=== PATIENT | female | born 1945 | race Caucasian/White ===

== ENCOUNTER 2016-09-24 22:08 | Inpatient (IN) | payer MEDICARE, OTHER ==
[~2016-09-24] VITALS: Ht 175.3 cm; Wt 67.7 kg
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
--- NOTE | 2016-09-24 22:44 | NUR ---
KENDRA HICKS APRN AT BEDSIDE.
--- NOTE | 2016-09-24 23:01 | NUR ---
REPORT REPORT RECEIVED AND CARE ASSUMED AT THIS TIME
--- NOTE | 2016-09-24 23:10 | NUR ---
VOID PT ASSISTED TO BEDPAN, VOIDED 400ML STRAW COLORED, CLEAR URINE. Addendum: 09/24/16 at 2315 by JAYDON CORRECT TIME TO 3
[2016-09-24] MEDS ORDERED: FENTANYL 100mcg/2ml INJECTION NAS ONE (23:15)
[2016-09-24] MEDS ORDERED: ONDANSETRON ODT 4 MG TAB PO ONE (23:15)
--- NOTE | 2016-09-24 23:50 | NUR ---
ELIMINATION PT VOIDED ON BEDPAN
--- NOTE | 2016-09-24 23:52 | NUR ---
RADIOLOGY PT TO RADIOLOGY PER CART
[2016-09-25] VITALS (30 sets, daily range): BP systolic 122–150; BP diastolic 57–80; PULSE 76–99; RESP 14–26; TEMP 96.3–99.7; O2SAT 88–100; Ht 175.3 cm; Wt 67.7 kg
--- NOTE | 2016-09-25 00:10 | NUR ---
RADIOLOGY PT FROM RADIOLOGY PER CART
[2016-09-25] MEDS ORDERED: HYDROMORPHONE 2mg/ml INJECTION IV ONE (00:30)
--- NOTE | 2016-09-25 00:35 | NUR ---
RADIOLOGY PT BACK TO RADIOLOGY
--- NOTE | 2016-09-25 00:45 | NUR ---
RADIOLOGY PT FROM CT PER CART
--- NOTE | 2016-09-25 01:45 | NUR ---
REPORT REPORT TO KIRA GONZALES
[2016-09-25] MEDS ORDERED: LEVO50TA4 PO (01:51)
[2016-09-25] MEDS ORDERED: ONDANSETRON 4mg/2ml INJECTION IV PRN ×2 (02:00→11:30)
[2016-09-25 02:02] LABS: BLOOD, URINE NEGATIVE (NEGATIVE); COLOR,URINE YELLOW (YELLOW); LEUKOCYTE ESTERASE ,URINE NEGATIVE (NEGATIVE); NITRITE,URINE NEGATIVE (NEGATIVE); UROBILINOGEN,URINE 0.2 EU/DL (NORMAL)
[2016-09-25 02:03] LABS: HCT - HEMATOCRIT 41.3 % (36-46); HGB - HEMOGLOBIN 13.5 GM/DL (12-16); MEAN CORPUSCULAR HGB 30.3 UUG (26-34); MEAN CORPUSCULAR HGB CONC(MCHC 32.7 GM/DL (31-37); MEAN CORPUSCULAR VOLUME 92.6 UM3 (80-100); MEAN PLATELET VOLUME 10.3 UM3 (9.4-12.4); RED BLOOD COUNT 4.46 M/MM3 (4.00-5.20)
[2016-09-25 02:10] LABS: ANION GAP 12 MEQ/L (5-15); BUN/CREATININE RATIO 31 RATIO (6-26); CALCIUM 9.4 MG/DL (8.4-10.2); CHLORIDE 104 MEQ/L (98-107); CO2 - CARBON DIOXIDE 29 MEQ/L (22-30); CREATININE 0.7 MG/DL (0.7-1.2); GLOMERULAR FILTRATION RATE 83; GLUCOSE 123 MG/DL (65-110); MAGNESIUM 2.3 MG/DL (1.6-2.3); SODIUM 145 MEQ/L (134-144)
[2016-09-25 02:12] LABS: BAND NEUTROPHILS # 0.6 T/MM3; EOSINOPHILS # (MANUAL) 0.1 T/MM3 (0-0.5); LYMPHOCYTES # (MANUAL) 1.1 T/MM3 (1-4.8); MONOCYTES # (MANUAL) 0.5 T/MM3 (0-0.8); NEUTROPHILS #(MANUAL)-ABSOLUTE 7.7 T/MM3 (1.8-7.7); TOTAL CELLS COUNTED 100 %
[2016-09-25 02:21] LABS: PHOSPHORUS 3.1 MG/DL (2.5-4.5)
--- NOTE | 2016-09-25 02:30 | NUR ---
STATUS PT RESTING AT THIS TIME. PT REPORTS MINIMAL PAIN UNLESS SHE TIRES TO MOVE HER LEG
[2016-09-25 02:41] LABS: THYROID STIM HORMONE-TSH 1.72 MIU/L (0.47-4.68)
--- NOTE | 2016-09-25 02:52 | NUR ---
TRANSFER PT LEFT DEPARTMENT PER CART WITH STAFF AND
[2016-09-25] MEDS: HYDROMORPHONE 2mg/ml INJECTION IV PRN ×6 (03:09→12:05)
[2016-09-25] MEDS: NORMAL SALINE 1,000 ML IV SCH ×2 (03:13→12:18)
[2016-09-25] MEDS ORDERED: LACT1CAP73 PO (03:16)
--- NOTE | 2016-09-25 03:20 | NUR ---
Admission: Pt arrived at 0250 via cart from ED with nurse. Pt is a&o. Pt present with Pt. Pt is on room air. Pt transferred to bed via slide board and had increase in pain of course. Pt holds breath when experiencing increase in pain and O2 sat's drop. Pt educated to breath normal and take deep breaths with increase in pain. Pain medication administered as charted. Pt is pleasant and cooperative. Mota catheter inserted as charted per 's orders. Pt oriented to room, call light, etc. Pt resting in bed with eyes closed. Resp visible and unlabored.
--- NOTE | 2016-09-25 04:05 | HPPDOC ---
GENOVEVA MCCORMICK MD 09/25/16 0357: HPI - Adult Date DATE: 09/25/16 TIME: 04:54 General Chief Complaint: left hip pain History of Present Illness This is a 71-year-old female tripped over a [employer] tractor one of her grandchildren. The patient landed on her left hip. Had immediate pain and unable to bear weight. The patient is brought to the emergency department or a plain x-ray suggests the possibility of a fracture. A CT of the hip was undertaken and demonstrated an impacted fracture of the left. The patient otherwise healthy except for hypothyroidism. The patient is in excellent health. The patient is to be admitted for surgical repair. The ER provider discussed with Dr. Reeves and agrees to evaluate the patient this morning Past Medical History Past Medical History breast cancer hypothyroid Surgical History Patient's Surgical History: left masectomy with lymph node removal BELINDA T and A jaw surgery for TMJ Current Medications Home Meds Reported Medications Lactobacillus Combination No.4 (Probiotic) 1 Each Capsule, 3 CAP PO BID 09/25/16 Levothyroxine Sodium (Synthroid) 50 Mcg Tablet, 1 TAB PO ACB, TAB BEST IF TAKEN BEFORE BREAKFAST 09/25/16 Allergies: Coded Allergies: iodine (Verified Allergy, Unknown, 09/25/16) Family History Family History: non contributory Social History Smoking Status: Never smoker Substance Use Type: does not use Alcohol Intake: none Marital Status: Sexuality: male partner Household Members: significant other Current Occupational Status: employed Advance Directives: No DPOA for Healthcare Only Review of Systems All Other Systems All Other Systems: Reviewed (remainder of 10-point ROS Neg.) Comments The patient denies headache, denies change in vision, denies any difficulty hearing, denies any sore throat or difficulty swallowing, no fever chills or sweats, no neck pain, no chest pain, no PND, no orthopnea, no cough, the patient denies any nausea vomiting, no abdominal pain, no change in bowel movements, no urinary symptoms, no focal neurological complaints, the patient has pain to the left hip, pain is worse with movement or activity, the patient is very active and and aggressively does chores inside and outside the house without chest pain or shortness of breath. Her exercise tolerance has not changed recently. A 10 point review of systems is otherwise negative except for outlined above Physical Exam General General Nourishment: well nourished, well developed, apparent age, adult General Body Habitus: well groomed Vital Signs Vital Signs Date Time Temp Pulse Resp B/P Pulse Ox O2 Delivery O2 Flow Rate FiO2 09/25/16 03:09 18 09/25/16 03:04 99.7 98 150/71 88 Room Air 09/25/16 02:52 2.00 Height (Feet): 5 Height (Inches): 9.00 Telemetry Rhythm: Sinus Rhythm Eyes Brief: FOUND: EOMI, PERRL Neck Brief: FOUND: midline, NOT FOUND: JVD, nuchal rigidity, other, spasm, tenderness, tracheal deviation Respiratory Brief: FOUND: clear all quiñones, equal bilaterally, NOT FOUND: other , rales, spasm, symmetrical, tenderness, wheezes Cardiovascular (brief) Cardiac Brief: FOUND: regular rate, regular rhythm, NOT FOUND: click, gallop, murmur, other, pedal edema, peripheral edema, rub Capillary Refill: <2 sec Abdomen (brief) Abdominal Brief: FOUND: BS normo active x4, soft, NOT FOUND: distended, other, tender Musculoskeletal (brief) Musculoskeletal Brief: FOUND: spasm, tenderness Comments left hip Integumentary (brief) Integumentary Brief: FOUND: pink, warm Neurologic (brief) Neurological Brief: FOUND: cranial 2-12 intact Comments no focal deficit Neurologic RN Documented GCS Eye Opening: (4)Spontaneous Verbal: (5)Oriented Motor: (6)Obeys Commands Total: Psychiatric (brief) FOUND: alert, normal affect, oriented Laboratory Laboratory Tests Test 09/25/16 00:00 09/25/16 00:34 Urine Collection Type Cleancatch-midstream Urine Color Yellow Urine Turbidity Clear Urine pH 5.5 Urine Specific [place] <=1.005 Urine Protein Negative Urine Glucose (UA) Negative Urine Ketones Negative Urine Blood Negative Urine Nitrite Negative Urine Bilirubin Negative Urine Urobilinogen 0.2EU/DL Urine Leukocyte Esterase Negative Urinalysis Comment Microscopic not ind. White Blood Count 10.0T/MM3 Red Blood Count 4.46M/MM3 Hemoglobin 13.5GM/DL Hematocrit 41.3% Mean Corpuscular Volume 92.6UM3 Mean Corpuscular Hemoglobin 30.3UUG Mean Corpuscular Hemoglobin Concent 32.7GM/DL RDW Standard Deviation 45.1FL Platelet Count 247T/MM3 Mean Platelet Volume 10.3UM3 Immature Granulocyte % (Auto) % Neutrophils (%) (Auto) % Lymphocytes (%) (Auto) % Monocytes (%) (Auto) % Eosinophils (%) (Auto) % Basophils (%) (Auto) % Absolute Immature Granulocyte (auto T/MM3 Absolute Neutrophils (auto) T/MM3 Absolute Lymphocytes (auto) T/MM3 Absolute Monocytes (auto) T/MM3 Absolute Eosinophils (auto) T/MM3 Absolute Basophils (auto) T/MM3 Neutrophils % (Manual) 77.0% Band Neutrophils % 6.0% Lymphocytes % (Manual) 11.0% Monocytes % (Manual) 5.0% Eosinophils % (Manual) 1.0% Absolute Neutrophils (Manual) 7.7T/MM3 Band Neutrophils # 0.6T/MM3 Lymphocytes # (Manual) 1.1T/MM3 Monocytes # (Manual) 0.5T/MM3 Eosinophils # (Manual) 0.1T/MM3 Red Cell Morphology Comment Normal Turbidity < 20 Sodium Level 145MEQ/L Potassium Level 4.0MEQ/L Chloride Level 104MEQ/L Carbon Dioxide Level 29MEQ/L Anion Gap 12MEQ/L Blood Urea Nitrogen 22.0MG/DL Creatinine 0.7MG/DL Glomerular Filtration Rate Calc 83 BUN/Creatinine Ratio 31RATIO Glucose Level 123MG/DL Calculated Osmolality 283MOSM/KG Calcium Level 9.4MG/DL Phosphorus Level 3.1MG/DL Magnesium Level 2.3MG/DL Icterus Index < 2 Thyroid Stimulating Hormone (TSH) 1.72MIU/L Chemistry Specimen Hemolysis 18 EKG consider incomplete RBBB. sinus. non ischemic Radiology CT left hp demonstrates impacted surgical neck fx of femur pCXR looks reasuring no acute process Assessment & Plan Assessment 1. Surgical neck fracture of left femur acute present on admission: Nothing by mouth, orthopedic surgery consult as are deep in place, anticipate repair in the morning, this patient is medically cleared for surgical repair. The patient s meds are at least well. A perfect example of excellent health. 2. Hypothyroidism chronic present on admission: Continue supportive discharge 3. Remote history of breast carcinoma: To be aware of 4. DVT prophylaxis: SCD DVT Prophylaxis: SCD'S Code Status Full Code Hospital Course Summary Disclaimer The hospital course summary below is not to be considered part of the above Progress Note. TERRI MARQUEZ MD 09/25/16 1029: Past Medical History Current Medications Home Meds Reported Medications Lactobacillus Combination No.4 (Probiotic) 1 Each Capsule, 3 CAP PO BID 09/25/16 Levothyroxine Sodium (Synthroid) 50 Mcg Tablet, 1 TAB PO ACB, TAB BEST IF TAKEN BEFORE BREAKFAST 09/25/16 Allergies: Coded Allergies: iodine (Verified Allergy, Unknown, 09/25/16) Assessment & Plan Assessment Dr. Mccormick's note reviewed. Mrs. Russo interviewed and examined; multiple family members present. CC: Left hip pain/fracture HPI: Mrs. Russo tripped over a toy tractor taking recycling out yesterday evening. She landed on her left hip and denied head injury or loss of consciousness. She was able to get up independently and attempted to hop back to the house but was unable to bear weight on the left and left hip pain inhibited her ability to return to the house. Her assisted her return. Her daughter who is a nurse arrived shortly thereafter and the patient was subsequently evaluated in the emergency room where x-rays demonstrated an impacted left femoral neck fracture. She's had no nausea or vomiting and pain is being controlled with Dilaudid overnight. She is tentatively scheduled to go to the operating room later this morning. She was seen by Dr. Reeves earlier today. PH/SH/FH: agree with that recorded above and history of osteoporosis and prior hemithyroidectomy for benign nodule or cyst. FH positive for mother dying of pancreatic cancer, father of motor vehicle accident, and several siblings with cancer including lymphoma and neuroendocrine tumor. is the patient's alternate decision maker and she is full code. ROS: 10 point review notable only for variable bowel function and occasional tingling in her fingers which she attributes to position she is lying in. Otherwise entirely negative. EXAM: General-98.5, 127/96 NAD, alert, fluent speech HEENT-PERRL, EOMI without nystagmus, conjugate gaze, facial structures symmetric , oropharynx clear, neck supple and without adenopathy Lungs-respirations nonlabored, good airflow, breath sounds clear anteriorly/ laterally Cardiac-regular rhythm, S1-S2 Abd-soft, nontender, without palpable mass, bowel sounds present Ext-without edema Skin-small abrasion left forearm but otherwise without rash or evidence of injury Musculoskeletal-left leg shortened and externally rotated compared to the right Neuro-sensation intact bilateral lower extremities, able to plantarflex feet symmetrically. Upper extremity power normal, no drift, turner off 5/5. Sensation intact to light touch 4 extremities, EOMI, no tremor present. Normal motor tone Psych-calm, cooperative, pleasant A/P: Left femoral neck fracture Osteoporosis Hypothyroidism History of breast cancer Borderline hypernatremia x-rays reviewed by myself, chest x-ray unremarkable, EKG unremarkable. Preoperative labs stable with normal hemoglobin. Medically cleared to proceed with surgery as planned. Plan/Intensity of Service X-rays reviewed by myself, EKG reviewed by myself, discussed with anesthesia and multiple family members. Laboratory data reviewed. High-risk medications/IV narcotics-in use GENOVEVA MCCORMICK MD Sep 25, 2016 03:57 TERRI MARQUEZ MD Sep 25, 2016 10:29
--- NOTE | 2016-09-25 06:08 | NUR ---
End of Shift: Pt put on 1L of O2 due to O2 sat's from 86-89%. Pt came up to 92% very quickly after the 1L of O2 NC on. Pt is pleasant and cooperative. Pt given another dose of Dilaudid IV PRN as charted within the last hour. Pt resting quietly in bed. Good urinary output via wilson catheter. Pt has been NPO since arrival. IV continue to infuse. Pt has rested well since admission questions completed. Pt does get drowsy after pain meds but wakes up easily to name. Will continue to monitor.
--- NOTE | 2016-09-25 08:12 | CONSPD ---
Consultation Info Date DATE: 09/25/16 TIME: 07:57 Attending Physician Minh Hutson MD Reason for Consultation: Left Femoral Neck Fx Impression/Recommendation Impression/Recommendation: (1) Impacted fracture of left hip Status: Acute Qualifiers: Encounter type: initial encounter Fracture type: closed Qualified Codes: S72.092A - Other fracture of head and neck of left femur, initial encounter for closed fracture Recommendation: Discussed findings with patient. Recommend percutaneous screw fixation of the left hip. Discussed the risks, benefits, alternatives, and potential complications including but not limited to risk of fixation failure requiring additional surgery, infection, bleeding, neurovascular injury, risk of anesthesia and others. Will plan for surgery this morning. Consent. Npo. Ortho HPI HPI Elements Location: FOUND hip (left) Injury: Yes (fall) Pain: FOUND throbbing, FOUND ache, FOUND pressure Onset: Sudden Radiating: No Duration: FOUND 6-12 hours Previous Surgery: No Previous Injury: No Aggrevated by: FOUND standing, FOUND squatting, FOUND prolonged sitting, FOUND all activity, FOUND getting out of a chair Associated Symptoms: FOUND weakness, FOUND sensation of giving way, NOT FOUND numbness Treatments Tried: FOUND rest, FOUND pain medications X-ray Findings: FOUND sub-capital fracture Recommendation: FOUND cannulated screw fixation Review of Systems Constitutional: DENIES: chills, dizziness, fever, weakness Cardiovascular DENIES: chest pain, dyspnea on exertion Vascular: DENIES: pedal edema Pulmonary Respiratory: DENIES: cough, dyspnea GI Upper Abdomen: DENIES: nausea, vomiting Lower Abdomen: DENIES: constipation, diarrhea Musculoskeletal General: joint pain, tenderness, weakness Integumentary Skin: DENIES: lesion Neurological General: DENIES: numbness, seizures, syncope Psychiatric Psychiatric: DENIES: anxiety, depression All Other Systems Reviewed Past Medical History Adult Problem List Updates breast cancer hypothyroid Surgical History Patient's Surgical History: left masectomy with lymph node removal BELINDA T and A jaw surgery for TMJ Current Medications Lactobacillus Combination No.4 (Probiotic) 1 Each Capsule, 3 CAP PO BID, ( Reported) Last Taken: Unknown Dose on 09/24/16 0800 Levothyroxine Sodium (Synthroid) 50 Mcg Tablet, 1 TAB PO ACB, (Reported) BEST IF TAKEN BEFORE BREAKFAST Last Taken: 50 MCG on 09/24/16 0700 Allergies Allergies: Coded Allergies: iodine (Verified Allergy, Unknown, 09/25/16) Family History Family History: non contributory Vaccines No UNKNOWN Social History Smoking Status: Never smoker Substance Use Type: does not use Alcohol Intake: none Marital Status: Sexuality: male partner Household Members: significant other Current Occupational Status: employed Advance Directives: No DPOA for Healthcare Only Physical Exam General General: well nourished, well developed, no acute distress Respiratory FOUND clear all quiñones, FOUND non-labored Cardiovascular FOUND regular rate, FOUND regular rhythm Capillary Refill: <2 sec Abdomen Abdominal: FOUND soft, NOT FOUND distended, NOT FOUND tender Musculoskeletal Musculoskeletal : Side: Left Hip: FOUND painful PROM, FOUND tender over trochanter Musculoskeletal Brief: FOUND: loss of motion, spasm, tenderness, Not FOUND: deformity Comments Pain with log roll to left groin. Integumentary FOUND dry, FOUND pink, FOUND warm Laboratory Laboratory Tests Test 09/25/16 00:00 09/25/16 00:34 Urine Collection Type Cleancatch-midstream Urine Color Yellow Urine Turbidity Clear Urine pH 5.5 Urine Specific [place] <=1.005 Urine Protein Negative Urine Glucose (UA) Negative Urine Ketones Negative Urine Blood Negative Urine Nitrite Negative Urine Bilirubin Negative Urine Urobilinogen 0.2EU/DL Urine Leukocyte Esterase Negative Urinalysis Comment Microscopic not ind. White Blood Count 10.0T/MM3 Red Blood Count 4.46M/MM3 Hemoglobin 13.5GM/DL Hematocrit 41.3% Mean Corpuscular Volume 92.6UM3 Mean Corpuscular Hemoglobin 30.3UUG Mean Corpuscular Hemoglobin Concent 32.7GM/DL RDW Standard Deviation 45.1FL Platelet Count 247T/MM3 Mean Platelet Volume 10.3UM3 Immature Granulocyte % (Auto) % Neutrophils (%) (Auto) % Lymphocytes (%) (Auto) % Monocytes (%) (Auto) % Eosinophils (%) (Auto) % Basophils (%) (Auto) % Absolute Immature Granulocyte (auto T/MM3 Absolute Neutrophils (auto) T/MM3 Absolute Lymphocytes (auto) T/MM3 Absolute Monocytes (auto) T/MM3 Absolute Eosinophils (auto) T/MM3 Absolute Basophils (auto) T/MM3 Neutrophils % (Manual) 77.0% Band Neutrophils % 6.0% Lymphocytes % (Manual) 11.0% Monocytes % (Manual) 5.0% Eosinophils % (Manual) 1.0% Absolute Neutrophils (Manual) 7.7T/MM3 Band Neutrophils # 0.6T/MM3 Lymphocytes # (Manual) 1.1T/MM3 Monocytes # (Manual) 0.5T/MM3 Eosinophils # (Manual) 0.1T/MM3 Red Cell Morphology Comment Normal Turbidity < 20 Sodium Level 145MEQ/L Potassium Level 4.0MEQ/L Chloride Level 104MEQ/L Carbon Dioxide Level 29MEQ/L Anion Gap 12MEQ/L Blood Urea Nitrogen 22.0MG/DL Creatinine 0.7MG/DL Glomerular Filtration Rate Calc 83 BUN/Creatinine Ratio 31RATIO Glucose Level 123MG/DL Calculated Osmolality 283MOSM/KG Calcium Level 9.4MG/DL Phosphorus Level 3.1MG/DL Magnesium Level 2.3MG/DL Icterus Index < 2 Thyroid Stimulating Hormone (TSH) 1.72MIU/L Chemistry Specimen Hemolysis 18 Radiology Radiology Valgus impacted left sub-capital left femoral neck fx MINH HUTSON MD Sep 25, 2016 08:01
[2016-09-25] MEDS ORDERED: CEFAZOLIN 2 GM VIAL IV ONE (08:15)
--- NOTE | 2016-09-25 08:49 | DI ---
Indication: ITS.REASON: Fall with left hip pain PROCEDURE: CT LOWER EXTREMITY LT W/O CONT: Encounter: Initial Comparison: None Technique: Axial noncontrast CT imaging of the pelvis and hips was performed with coronal and sagittal two-dimensional reformats. Automated Exposure Control and Iterative Reconstruction dose reducing techniques were utilized. Findings: Soft tissues of the pelvis are grossly normal. Muscular attenuation is normal. There is a nondisplaced fracture of the left subcapital femoral neck. Ring osteophytes on both femoral heads with mild to moderate joint space narrowing. Pubic symphysis is intact. No additional acute fracture or dislocation. Impression: Nondisplaced fracture of the subcapital left femoral neck. There is a preliminary report by [facility]. .
--- NOTE | 2016-09-25 09:56 | ANESPREOP ---
Anesthesia Record Date and Time DATE: 09/25/16 TIME: 09:54 Pre-Op Diagnosis Left hip fracture Proposed Surgical Procedure Left NPO since: Midnight Allergies: Coded Allergies: iodine (Verified Allergy, Unknown, 09/25/16) Ht/Wt/BMI Height: 5 ' 9.00 " Weight: 64.500 kg BMI: 20.9 kg/m2 Vital Signs Date Time Temp Pulse Resp B/P Pulse Ox O2 Delivery O2 Flow Rate FiO2 09/25/16 08:46 16 09/25/16 07:41 87 09/25/16 07:22 98.5 127/64 97 Nasal Cannula 1.00 Medications Inpatient Medications Current Medications Medications (Trade) Dose Ordered Sig/Robin Start Time Stop Time Status Last Admin Dose Admin Sodium Chloride (Normal Saline IV) 1,000 ml @ 100 mls/hr Q10H 09/25/16 01:59 09/25/16 03:13 100 MLS/HR Hydromorphone HCl (Dilaudid) 0.5 mg Q2H PRN 09/25/16 02:00 09/25/16 07:46 0.5 MG Ondansetron HCl (Zofran) 4 mg Q6H PRN 09/25/16 02:00 Lactobacillus Combination No.4 (Probiotic) 1 Each Capsule, 3 CAP PO BID, ( Reported) Last Taken: on 09/24/16 0800 Levothyroxine Sodium (Synthroid) 50 Mcg Tablet, 1 TAB PO ACB, (Reported) BEST IF TAKEN BEFORE BREAKFAST Last Taken: on 09/24/16 0700 Currently on Beta Camilo: No Medical/Surgical History Anesthesia PMH: Reports: Thyroid Disease, Denies: *Diabetes, *Hypertension, *[place] , Asthma, Blood Transfusion Reac, CHF, COPD, CVA/Stroke/TIA, Cancer, Seizures Smoking Status: Never smoker Has pt. smoked today?: No Use Chewing Tobacco?: No Second Hand Exposure: No Substance Use Type: does not use Past Surgical History Orthopedic Surgeries: Yes - JAW Abdominal Surgeries: Genitourinary Surgeries: Cardiac Surgeries: Endocrine Surgeries: Reproductive Surgeries: Yes - PARTIAL HYST Neurological Surgeries: Ear Surgeries: Nose Surgeries: Throat Surgeries: Yes - TONSILS Other Surgeries: Yes - LEFT MASTECTOMY,THYROID Anesthesia Adverse Reactions: FOUND none Family Hx of Anesthesia Advers: none Hx of Motion Sickness: No Pertinent Findings Laboratory Tests 4/9/17 00:34 EKG Rhythm: Sinus Rhythm Physical Exam Respiratory: Lungs clear Cardiovascular: FOUND Regular rate, rhythm Airway Assessment Mallampati Score: II TMD: 3 Fingerbreadths Neck Extension: Fair Overall Assessment: No Airway Concerns ASA: 2, E Discussion Discussed risks/options/alternatives of anesthesia and questions answered. Patient consents. Nursing pain assessment noted. Attestation Statement Prior to the delivery of any anesthetic medication, I examined the patient, developed the plan, obtained the patient's consent and discussed the risk and benefits of the procedure with the patient/guardian. LASHAUN ANDREW VICE PRESIDENT OF ADVERTISING Sep 25, 2016 09:55
[2016-09-25] MEDS ORDERED: PROPOFOL 500mg 50 ML IV ONE ×2 (10:09→10:10)
[2016-09-25] MEDS ORDERED: MIDAZOLAM 2mg/2ml INJECTION ONE (10:12)
[2016-09-25] MEDS ORDERED: FENTANYL 100mcg/2ml INJECTION ONE (10:12)
--- NOTE | 2016-09-25 10:17 | DI ---
Indication: ITS.REASON: Hip fx PROCEDURE: CHEST 1 VIEW: Encounter: Initial Comparison: None Findings: Lungs are grossly clear. Focal eventration of the right hemidiaphragm. Left apex is not fully included in the [id number]. Heart size, pulmonary vascularity and mediastinal contours are within normal limits. Metallic foreign body projecting over the left chest, presumably external to the patient. Impression: No acute cardiopulmonary disease. .
--- NOTE | 2016-09-25 10:19 | DI ---
Indication: ITS.REASON: fell pain in groin and lateral hip PROCEDURE: PELVIS W/2 VIEW LT HIP: Encounter: Initial Comparison: CT from the same date Findings: Nondisplaced fracture of the subcapital left femoral neck. No additional acute fracture or subluxation seen. 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 Impression: Closed posttraumatic left femoral neck fracture. .
--- NOTE | 2016-09-25 10:25 | NUR ---
Pt to OR This RN noticed Pt was taken to OR. This RN was not made aware of Pts transfer to OR.
[2016-09-25] MEDS ORDERED: EPHEDRINE SULFATE 50mg/ml INJECTION ONE (10:44)
[2016-09-25] MEDS ORDERED: PROPOFOL 200mg 40 ML IV ONE (10:45)
[2016-09-25] MEDS ORDERED: BUPIVACAINE 0.25% (2.5mg/ml) INJ 30ml SDV ONE (10:45)
[2016-09-25] MEDS ORDERED: DEXAMETHASONE 4mg/ml - 1ml INJECTION ONE (10:59)
[2016-09-25] MEDS ORDERED: ONDANSETRON 4mg/2ml INJECTION ONE (10:59)
[2016-09-25] MEDS ORDERED: METOCLOPRAMIDE 10mg/2ml INJECTION IV PRN (11:30)
--- NOTE | 2016-09-25 11:43 | ANESPO ---
Post-Op Note Date 09/25/16 Time: 11:43 Status Pt Participated in Evaluation: Pt participated in person Vital Signs Date Time Temp Pulse Resp B/P Pulse Ox O2 Delivery O2 Flow Rate FiO2 09/25/16 11:31 98.2 99 16 126/80 100 Mask 6.00 Respiratory Function: Airway patent Cardiovascular Function: Regular pulse Telemetry Pattern: SR Mental Status: Lethargic Pain Level Intensity: 5 Hydration: IV infusing Complications during Recovery None apparent Follow-Up Instructions Instructions Per Surgeon LASHAUN ANDREW CRNA Sep 25, 2016 11:43
--- NOTE | 2016-09-25 12:25 | NUR ---
RETURN TO UNIT PATIENT RETURNS TO ROOM 111 VIA HOSPITAL BED FROM SURGERY. IVF INFUSING, O2 2L PER NC. PATIENT DROWSY BUT AROUSES EASILY. DRESSING TO LEFT LATERAL THIGH CLEAN,DRY, AND INTACT. WAGGONER TO DEPENDENT DRAINAGE. SCD TO BILATERAL LOWER EXTREMITIES. BED IN LOWEST POSITION, CALL LIGHT WITHIN REACH, SIDE RAILS UP 2, BED ALARM ACTIVATED. RANULFO MOORE RN NOTIFIED OF THE ABOVE.
--- NOTE | 2016-09-25 13:01 | OPNOTEF ---
DATE OF OPERATION 09/25/16 PREOPERATIVE DIAGNOSIS Closed left minimally displaced subcapital femoral neck fracture (garden 1 valgus impacted). POSTOPERATIVE DIAGNOSIS Closed left minimally displaced subcapital femoral neck fracture (garden 1 valgus impacted). PROCEDURE Closed reduction with cannulated screw fixation of left subcapital femoral neck fracture. SURGEON Minh Reeves M.D. LOG HOOKER None. ANESTHESIA TIVA with local. FLUIDS Please refer to Anesthesia chart. EBL Minimal. TOURNIQUET None used. COMPLICATIONS None. Condition stable to recovery room. IMPLANTS Synthes 6.5 mm cannulated screws and washers x three. DESCRIPTION OF PROCEDURE Patient was identified in the preoperative holding area. The upper extremity was identified and appropriately marked. The risks, benefits, alternatives and potential complications were discussed and informed consent was obtained. The patient was taken to the operating theatre . TIVA anesthesia was administered on her hospital bed. She was then transferred to the fracture table. A peroneal post was placed. Bilateral lower extremities were placed in traction boots. The right well leg was placed in an extended position. Closed reduction [place] type maneuver was then performed on the left operative extremity and then placed in gentle traction. Fluoroscopy was brought in to confirm position. There was still mild valgus alignment but reduction was improved and felt to be stable and minimal to fixation. The left lower extremity was then sterilely prepped and draped in the usual fashion. Surgical time-out was performed, confirmed by myself, the accessioner and circulating nurse. Preoperative antibiotics were given. Fluoroscopy was brought in and positioned for incision was confirmed with fluoroscopy. The skin was then anesthetized with 0.25% Marcaine down to the level of the fascia and ultimately the lateral femoral cortex. A 3 cm incision was then created. Electrocautery was used for hemostasis as necessary as blunt dissection was carried through the subcutaneous fat. The IT band fascia was then incised longitudinally. Blunt elevation of the vastus lateralis was performed with a Billingsley elevator. Fluoroscopy was then utilized as the first and most inferior guidewire was positioned and confirmed in the AP and lateral planes. This was advanced to the subcortical area on the AP. Position was confirmed the lateral showing inferior position. This guidewire was then measured. The static constant guide was then placed over the inferior pin as an additional anterior and posterior proximal pins were placed; again position was confirmed in the AP and lateral planes with care taken to assure no penetration of the femoral head cortex. All screws were then measured. The cannulated drill was then utilized to open the lateral cortex and the proximal aspect of the fracture up to the level of the fracture line. Most inferior screw was then placed. Final tensioning was performed with the hand screwdriver. This helped to reduce further the fracture line was evident inferiorly. The other two screws were then placed with sequential tightening of all screws and washers to confirm uniform compression across the fracture site. The guide pins were then removed. Final x-rays were obtained showing well fixed, appropriately aligned subcapital femoral neck fracture. The wound was then copiously irrigated. The deep fascial layer was then closed with running 0 Vicryl suture. Subcutaneous tissues closed with 2-0 Vicryl and skin closed with running 4-0 Monocryl. Dermabond was then applied followed by Tegaderm after anesthetizing the skin again with local anesthetic. The patient was then taken out of traction table and taken to the recovery room in stable and satisfactory condition. VENKAT
[2016-09-25] MEDS: OXYCODONE I.R. 5 MG TABLET PO PRN ×2 (16:23→21:42)
--- NOTE | 2016-09-25 17:21 | NUR ---
Summary Pts VS stable on 2L NC. Pt has been sleepy this afternoon, Pt more alert at this time visiting with myself and family. Pt has denied nausea. Pt rated pain a 6/10, PRN 2 tabs PO roxicodone given at that time after Pt was able to tolerate crackers and jello. Family has been present in the room upon Pts return to unit. Ice pack to the left hip in place. Bed alarm on. call light w/in reach, side rails up X2.
[2016-09-25] MEDS: CEFAZOLIN 1 G in NORMAL SALINE 100 ML IV SCH (19:21)
[2016-09-25] MEDS: ENOXAPARIN 40 MG/0.4 ML INJECTION SQ SCH (21:40)
--- NOTE | 2016-09-25 21:42 | NUR ---
O2/New order: Assisted Pt to turn to right and noted Pt Nasal cannula is off. Pt stated she had taken it off for a moment and forgot to put it back on. O2 sat checked and is 90-91% on room air. No IS seen in room. Notified Dr. Larson via [employer] and received order for Incentive spirometer. Notified RT Dreic of new order. Notified JANET Rojo.
[2016-09-26] VITALS (9 sets, daily range): BP systolic 112–129; BP diastolic 60–65; PULSE 72–85; RESP 16; TEMP 96.7–100.1; O2SAT 94–99
--- NOTE | 2016-09-26 00:39 | NUR ---
Chart Check 24 hour chart check completed
[2016-09-26] MEDS: NORMAL SALINE 1,000 ML IV SCH (00:42)
[2016-09-26] MEDS: OXYCODONE I.R. 5 MG TABLET PO PRN ×3 (02:54→13:40)
[2016-09-26] MEDS: CEFAZOLIN 1 G in NORMAL SALINE 100 ML IV SCH ×2 (03:00→11:25)
--- NOTE | 2016-09-26 05:15 | NUR ---
STATUS PATIENT ALERT AND ORIENTEDX3.PATIENT C/O PAIN AT LT HIP,PATIENT RATED 5-6/10. PRN ROXICODONE WAS GIVEN PER ORDER.DENIES CHEST PAIN,SOA,OR N/V. 2LO2 VIA NC. PATIENT'S SPO2 DROP LESS 90% FEW TIMES PER INSULATION ESTIMATOR REPORT. PATIENT'S DAUGHTER AT BESIDE DURING NIGHT. ICE PAD APPLIED TO LT HIP. ADEQUATE URINARY OUTPUT FROM WAGGONER.CALL LIGHT WITHIN REACH.CONTINUE TO MONITOR.
[2016-09-26] MEDS ORDERED: DiphenhydrAMINE 50 MG/ML INJECTION IV PRN (07:15)
--- NOTE | 2016-09-26 07:45 | NUR ---
STATUS PATIENT C/O SKIN ITCH AT WHOLE BODY. NOTIFIED DR MCCORMICK VIA TIGER TEXT. PRN BENADRYL IV WAS GIVEN PER DR MCCORMICK ORDER. CONTINUE TO MONITOR.
--- NOTE | 2016-09-26 08:07 | PDORTHOPN ---
Subjective Date DATE: 09/26/16 TIME: 08:03 Subjective Riya is doing fairly well. Pain is controlled with PO meds at this time. She c/o of itching with Oxycodone and needed IV Benadryl which made her very sleepy. Denies CP, cough or SOA. No other questions / concerns at this time. Objective Vital Signs Vital signs Vital Signs 09/25/16 09/26/16 09/26/16 20:27 00:04 03:12 Temp 98.8 96.7 Pulse 83 72 Resp 16 16 B/P 128/63 125/64 Pulse Ox 97 98 O2 Delivery Nasal Cannula Nasal Cannula Nasal Cannula O2 Flow Rate 2.00 2.00 2.00 Height (Feet): 5 Height (Inches): 9.00 Weight (Kilograms): 64.500 General General Appearance: Alert, Well Nourished, Well Developed, No Acute Distress Respiratory (Brief) Respiratory Brief: FOUND: non-labored Cardiovascular (Brief) Cardiac: FOUND: calf easily compressible, calf soft, nontender, pedal pulses intact Musculoskeletal (Brief) Hip: FOUND tender over trochanter Surgical Site Incision: FOUND: dressing intact, no drainage Integumentary (Brief) Integumentary Brief: FOUND dry, FOUND pink, FOUND warm Neurologic (Brief) Neurological Brief: FOUND: neuro intact Psychiatric (Brief) Psychiatric Brief: FOUND: alert, other (Appears tired from IV Benadryl.) Laboratory Laboratory Laboratory Tests 09/25/16 00:34 Laboratory Tests 09/25/16 00:34 Assessment & Plan Problems: (1) Impacted fracture of left hip Status: Acute Qualifiers: Encounter type: initial encounter Fracture type: closed Qualified Codes: S72.092A - Other fracture of head and neck of left femur, initial encounter for closed fracture Assessment & Plan: X Lovenox x 30 days. Mobilization and SCDs for added VTE protection. Keep 50% wt bearing on the left leg. Monitor labs. Change to Ultram due to itching. Hopefully avoid Benadryl. F/U in ortho clinic 10/18/16 @ 8:30AM. Hospital Course Summary Disclaimer The visit summary below is not to be considered part of the above Progress Note. CRISTHIAN MONSON Sep 26, 2016 08:07
--- NOTE | 2016-09-26 09:17 | DI ---
Indication: ITS.REASON: CANNULATED SCREWS LEFT HIP FX PROCEDURE: RF HIP LEFT 2 VIEW: Encounter: Initial Comparison: CT lower extremity from the same date Findings: Internal fixation of left femoral neck fracture with placement of three partially threaded cannulated screws across the left femoral neck with stable alignment. Impression: Fluoroscopy as above. Fluoroscopy time is 86 seconds. Fluoroscopy dose is 1410 mRad. .
[2016-09-26] MEDS: TRAMADOL 50 MG TABLET PO PRN ×2 (09:24→20:32)
[2016-09-26] MEDS ORDERED: BISACODYL 10 MG SUPPOSITORY RECTALLY PRN (10:45)
[2016-09-26] MEDS ORDERED: MILK OF MAGNESIA 30 ML SUSP PO PRN (10:45)
[2016-09-26] MEDS ORDERED: NITROGLYCERIN 0.4 MG SUBLINGUAL TABLET SL PRN (10:45)
[2016-09-26] MEDS ORDERED: PRN ORDERS MC (10:45)
[2016-09-26] MEDS ORDERED: MAG-AL + SIM LIQUID 30 ML UDC PO PRN (10:45)
[2016-09-26] MEDS ORDERED: NORMAL SALINE 1,000 ML IV SCH (11:30)
--- NOTE | 2016-09-26 11:52 | NUR ---
CM CM IN TO VISIT WITH PT. SHE IS ALERT AND ORIENTED. IRU V. SNF ARE DISCUSSED. PT REPORTS THAT HER DAUGHTER IS A PHYSICAL THERAPIST AND THE OTHER DAUGHTER IS A NURSE. THEY PLAN TO CARE FOR PT AT HOME. CM REASSURED PT THAT SHE CAN ASSIST IN GETTING NEEDED DME FOR HOME CARE. PT IS GIVEN CM CONTACT INFORMATION, [facility] LETTER AND INFORMATION ABOUT [employer] DIRECTIVES. Addendum: 09/26/16 at 1154 by ALLEN PAYNE RN Amended: Links added.
--- NOTE | 2016-09-26 11:53 | PNPDOC ---
Subjective Date DATE: 09/26/16 TIME: 11:31 Subjective F/U: Left subcapital femoral neck fracture Doing okay this morning. Had diffuse itching overnight - received Benadryl with helped (slightly fuzzy this am). Pain controlled, medications helping and feels she is tolerating pain medications. Worked with therapy this am. No nausea or ab pain. Passing flatus. Denies cough, congestion, or pain with breathing. On O2 at 2L - sats 100%. No chest pressure or pain. Objective Vital Signs Vital signs Vital Signs Date Time Temp Pulse Resp B/P Pulse Ox O2 Delivery O2 Flow Rate FiO2 09/26/16 09:55 77 16 09/26/16 09:01 98.8 129/65 99 Nasal Cannula 2.00 Telemetry Rhythm: Sinus Rhythm Height (Feet): 5 Height (Inches): 9.00 Weight (Kilograms): 64.500 General General Appearance: Alert, Orientated x 3, Well Nourished, Well Developed, Cooperative, Looks Stated Age Eyes (Brief) Eyes: FOUND: EOMI, PERRL, NOT FOUND: scleral icterus ENMT (Brief) ENMT: FOUND: hearing intact, mucosa moist Neck (Brief) Neck: FOUND: midline, NOT FOUND: nuchal rigidity, spasm Respiratory (Brief) Respiratory: FOUND: clear all quiñones, equal bilaterally, other (No distress ), NOT FOUND: rales, wheezes Cardiovascular (Brief) Cardiac: FOUND: regular rate, regular rhythm, NOT FOUND: pedal edema Abdomen (Brief) Abdominal: FOUND: soft, NOT FOUND: BS normo active x4 (Decreased bowel sounds ) , distended, tender Extremities (Brief) Extremity : Side: Bilateral Extremity: leg Extremity Finding: FOUND: other (SCD in place ), NOT FOUND: edema Musculoskeletal (Brief) Musculoskeletal: NOT FOUND: deformity, loss of motion, spasm Integumentary (Brief) Integumentary: FOUND: dry, warm Neurologic (Brief) Neurological: FOUND: cranial 2-12 intact, motor (Intact ) Psychiatric (Brief) Psychiatric: FOUND: alert, attentive, normal affect, oriented Laboratory Laboratory Laboratory Tests 09/25/16 00:34 Laboratory Tests 09/25/16 00:34 Assessment & Plan Problems: (1) Closed subcapital fracture of neck of left femur Status: Acute Qualifiers: Encounter type: initial encounter Qualified Codes: S72.012A - Unspecified intracapsular fracture of left femur, initial encounter for closed fracture (2) Fall Status: Acute Qualifiers: Encounter type: initial encounter Qualified Codes: W19.XXXA - Unspecified fall, initial encounter Assessment & Plan: Loss of footing - tripped (3) Hypernatremia Status: Acute Assessment & Plan: POA (4) Hypothyroidism Status: Chronic Qualifiers: Hypothyroidism type: acquired Qualified Codes: E03.9 - Hypothyroidism, unspecified (5) Osteoporosis Status: Chronic Qualifiers: Osteoporosis type: age-related Presence of current pathological fracture: without current pathological fracture Qualified Codes: M81.0 - Age-related osteoporosis without current pathological fracture (6) History of breast cancer Status: Chronic Assessment Check Hemogram and CMP. Decrease IVF to 75 cc/hr PT/OT initiated to help maximize functional status. Up in room with assistance - 50% weight bearing to left leg. Wean O2 as able, encourage use of IS and deep breathing. Consult with Dr Velasquez for Bone Health evaluation - Vit D levels ordered. Start Calcium with vitamin D BID. Start routine MiraLAX and Senna Plus to help bowel motivation (hold with loose stools). PRN MOM and Dulcolax suppositories available. Restart home Synthroid. TSH normal. Continue with pain control - prn IV Dilaudid, oxycodone, tramadol, and acetaminophen. Continue SCD and Lovenox for DVT prevention. Recheck BMP in am to due to hypernatremia and IVF use. Recheck CBC in am to monitor for post op anemia. Time spent with pt care 35 minutes. DVT Prophylaxis: SCD'S, Lovenox Code Status Full Code Hospital Course Summary Disclaimer The hospital course summary below is not to be considered part of the above Progress Note. Hospital Course Summary 09/25/16 Admit - OP DAY Admitted for closed left subcapital fracture of left femoral neck. Underwent closed reduction with cannulated screw fixation of left subcapital femoral neck fracture. 09/26 POD #1 Doing okay this morning. Had diffuse itching overnight - received Benadryl with helped (slightly fuzzy this am). Pain controlled, medications helping and feels she is tolerating pain medications. Worked with therapy this am. No nausea or ab pain. Passing flatus. Denies cough, congestion, or pain with breathing. On O2 at 2L - sats 100%. Check Hemogram and CMP. Decrease IVF to 75 cc/hr. PT/OT initiated to help maximize functional status. Up in room with assistance - 50% weight bearing to left leg. Wean O2 as able, encourage use of IS and deep breathing. Consult with Dr Velasquez for Bone Health evaluation - Vit D levels ordered. Start routine MiraLAX and Senna Plus to help bowel motivation (hold with loose stools). PRN MOM and Dulcolax suppositories available. Restart home Synthroid. TSH normal. Continue with pain control - prn IV Dilaudid, oxycodone, tramadol, and acetaminophen. Continue SCD and Lovenox for DVT prevention. Recheck BMP in am to due to hypernatremia and IVF use. Recheck CBC in am to monitor for post op anemia. WALLY MADRIGAL MD Sep 26, 2016 11:34
[2016-09-26 11:56] LABS: HCT - HEMATOCRIT 36.8 % (36-46); HGB - HEMOGLOBIN 11.7 GM/DL (12-16); MEAN CORPUSCULAR HGB 30.5 UUG (26-34); MEAN CORPUSCULAR HGB CONC(MCHC 31.8 GM/DL (31-37); MEAN CORPUSCULAR VOLUME 95.8 UM3 (80-100); RED BLOOD COUNT 3.84 M/MM3 (4.00-5.20); WBC - WHITE BLOOD COUNT 8.4 T/MM3 (4.5-11.0)
[2016-09-26 12:06] LABS: ALBUMIN 3.2 G/DL (3.5-5.0); ALBUMIN/GLOBULIN RATIO 1.3 RATIO (1.1-2.2); ALKALINE PHOSPHATASE 52 U/L (38-126); ALT (SGPT) 32 U/L (9-52); ANION GAP 9 MEQ/L (5-15); AST (SGOT) 22 U/L (14-36); BUN/CREATININE RATIO 17 RATIO (6-26); CALCIUM 8.6 MG/DL (8.4-10.2); CHLORIDE 102 MEQ/L (98-107); CO2 - CARBON DIOXIDE 31 MEQ/L (22-30); CREATININE 0.7 MG/DL (0.7-1.2); GLOMERULAR FILTRATION RATE 83; GLUCOSE 106 MG/DL (65-110); POTASSIUM 3.6 MEQ/L (3.6-5); SODIUM 142 MEQ/L (134-144); TOTAL PROTEIN 5.7 G/DL (6.3-8.2)
[2016-09-26] MEDS: ACETAMINOPHEN 325 MG TABLET PO PRN (12:53)
[2016-09-26] MEDS: LEVOTHYROXINE 50 MCG TABLET PO SCH (13:40)
--- NOTE | 2016-09-26 19:15 | NUR ---
PROGRESS NOTE PT IS ALERT AND ORIENTED X3. VITAL SIGNS STABLE ON 1L O2 PER NC. PT IS RESTING IN RECLINER AT BEDSIDE. PT'S WAGGONER CATHETER WAS DISCONTINUED THIS SHIFT PER DR. MADRIGAL AND THE PT TRANSFERS WITH X1 ASSIST, GAITBELT AND WALKER. PT HAS TOLERATED A REGULAR DIET AND HAS HAD ADEQUATE URINE OUTPUT. PT GIVEN PRN PAIN MEDICATION THIS SHIFT FOR BREAKTHROUGH PAIN. NO OTHER CONCERNS NOTED.
[2016-09-26] MEDS ORDERED: DiphenhydrAMINE 25 MG CAPSULE PO PRN (20:00)
[2016-09-26] MEDS: ENOXAPARIN 40 MG/0.4 ML INJECTION SQ SCH (20:34)
[2016-09-26] MEDS: SENNA + DOCUSATE TAB PO SCH (20:34)
[2016-09-26] MEDS: CALCIUM 600mg + VIT D 400 TABLET PO SCH (20:34)
[2016-09-27] VITALS (12 sets, daily range): BP systolic 118–144; BP diastolic 59–74; PULSE 76–90; RESP 10–18; TEMP 96.6–99.7; O2SAT 86–97
[2016-09-27] MEDS: OXYCODONE I.R. 5 MG TABLET PO PRN ×2 (04:39→23:37)
[2016-09-27] MEDS: TRAMADOL 50 MG TABLET PO PRN ×2 (04:42→11:03)
[2016-09-27 05:31] LABS: BASOPHILS % (AUTO) 0.3 % (0-2); EOSINOPHILS # (AUTO) 0.3 T/MM3 (0-0.5); EOSINOPHILS % (AUTO) 3.4 % (0-4); HCT - HEMATOCRIT 35.8 % (36-46); HGB - HEMOGLOBIN 11.1 GM/DL (12-16); LYMPHOCYTES # (AUTO) 1.1 T/MM3 (1-4.8); LYMPHOCYTES % (AUTO) 14.5 % (23-45); MEAN CORPUSCULAR HGB 29.3 UUG (26-34); MEAN CORPUSCULAR VOLUME 94.5 UM3 (80-100); MEAN PLATELET VOLUME 10.4 UM3 (9.4-12.4); MONOCYTES # (AUTO) 0.7 T/MM3 (0-0.8); MONOCYTES % (AUTO) 9.7 % (0-9.0); NEUTROPHILS #(AUTO)-ABSOLUTE 5.5 T/MM3 (1.8-7.7); NEUTROPHILS % (AUTO) 72.1 % (33-66); RED BLOOD COUNT 3.79 M/MM3 (4.00-5.20); WBC - WHITE BLOOD COUNT 7.6 T/MM3 (4.5-11.0)
[2016-09-27 05:41] LABS: ANION GAP 6 MEQ/L (5-15); BUN/CREATININE RATIO 23 RATIO (6-26); CALCIUM 8.6 MG/DL (8.4-10.2); CHLORIDE 98 MEQ/L (98-107); CO2 - CARBON DIOXIDE 32 MEQ/L (22-30); CREATININE 0.6 MG/DL (0.7-1.2); GLOMERULAR FILTRATION RATE 99; GLUCOSE 104 MG/DL (65-110); POTASSIUM 3.9 MEQ/L (3.6-5); SODIUM 136 MEQ/L (134-144)
--- NOTE | 2016-09-27 05:45 | NUR ---
SHIFT SUMMARY PATIENT IS ALERT AND ORIENTED X3 THIS SHIFT. VITAL SIGNS STABLE ON 1.5L NC. PATIENT'S PAIN HAS BEEN WELL CONTROLLED WITH PO MEDICATION. PATIENT HAS REPORTED NO NAUSEA OR VOMITING. PATIENT AMBULATES TO BEDSIDE COMMODE WELL WITH ASSIST X1, WALKER, AND GAIT BELT. WILL CONTINUE TO MONITOR.
[2016-09-27] MEDS: LEVOTHYROXINE 50 MCG TABLET PO SCH (06:08)
--- NOTE | 2016-09-27 10:41 | PNPDOC ---
Subjective Date DATE: 09/27/16 TIME: 10:28 Subjective F/U: Left subcapital femoral neck fracture Feeling rough this am. Nauseated this am-no emesis, but not feeling like eating. Passing flatus, but no stool. Not having ab pain. Breathing feeling okay -no pain with breathing, cough or congestion but saturations in upper 80s on RA. No chest pain or palpitations. Urinating well without Mota cath. No f/c. Objective Vital Signs Vital signs Vital Signs Date Time Temp Pulse Resp B/P Pulse Ox O2 Delivery O2 Flow Rate FiO2 09/27/16 09:25 84 16 09/27/16 08:10 96.8 144/74 97 Room Air 09/27/16 04:00 1.00 Telemetry Rhythm: Sinus Rhythm Height (Feet): 5 Height (Inches): 9.00 Weight (Kilograms): 64.500 General General Appearance: Alert, Orientated x 3, Well Nourished, Well Developed, Cooperative, Looks Stated Age Eyes (Brief) Eyes: FOUND: EOMI, PERRL, NOT FOUND: scleral icterus ENMT (Brief) ENMT: FOUND: hearing intact, mucosa moist Neck (Brief) Neck: FOUND: midline, NOT FOUND: nuchal rigidity, spasm Respiratory (Brief) Respiratory: FOUND: clear all quiñones, equal bilaterally, other (No distress ), NOT FOUND: rales, wheezes Cardiovascular (Brief) Cardiac: FOUND: regular rate, regular rhythm, NOT FOUND: pedal edema Abdomen (Brief) Abdominal: FOUND: BS normo active x4, soft, NOT FOUND: distended, tender Extremities (Brief) Extremity : Side: Bilateral Extremity: leg Extremity Finding: FOUND: other (SCD in place ), NOT FOUND: edema Musculoskeletal (Brief) Musculoskeletal: NOT FOUND: deformity, spasm Integumentary (Brief) Integumentary: FOUND: dry, warm Neurologic (Brief) Neurological: FOUND: cranial 2-12 intact, motor (Intact ) Psychiatric (Brief) Psychiatric: FOUND: alert, attentive, normal affect, oriented Laboratory Laboratory Laboratory Tests 09/26/16 11:09 09/27/16 04:19 Laboratory Tests 09/26/16 11:09 09/27/16 04:19 Assessment & Plan Problems: (1) Closed subcapital fracture of neck of left femur Status: Acute Qualifiers: Encounter type: initial encounter Qualified Codes: S72.012A - Unspecified intracapsular fracture of left femur, initial encounter for closed fracture (2) Fall Status: Acute Qualifiers: Encounter type: initial encounter Qualified Codes: W19.XXXA - Unspecified fall, initial encounter Assessment & Plan: Loss of footing - tripped (3) Hypernatremia Status: Resolved Assessment & Plan: POA (4) Hypothyroidism Status: Chronic Qualifiers: Hypothyroidism type: acquired Qualified Codes: E03.9 - Hypothyroidism, unspecified (5) Osteoporosis Status: Chronic Qualifiers: Osteoporosis type: age-related Presence of current pathological fracture: without current pathological fracture Qualified Codes: M81.0 - Age-related osteoporosis without current pathological fracture (6) History of breast cancer Status: Chronic Assessment Continue PT/OT initiated to help maximize functional status. Wean O2 as able, encourage use of IS and deep breathing. Monitor O2 sats. Start routine MiraLAX and Senna Plus to help bowel motivation (hold with loose stools). PRN MOM and Dulcolax suppositories available. Continue with pain control - prn IV Dilaudid, oxycodone, tramadol, and acetaminophen. Continue SCD and Lovenox for DVT prevention. Recheck BMP in. Recheck CBC in am to monitor for post op anemia. Looking at going home for rehabilitation - has excellent family support. Will have to see how she progresses with therapy. Case discussed with nursing and CM. Time spent with pt care 35 minutes. DVT Prophylaxis: SCD'S, Lovenox Code Status Full Code Hospital Course Summary Disclaimer The hospital course summary below is not to be considered part of the above Progress Note. Hospital Course Summary 09/25/16 Admit - OP DAY Admitted for closed left subcapital fracture of left femoral neck. Underwent closed reduction with cannulated screw fixation of left subcapital femoral neck fracture. 09/26 POD #1 Doing okay this morning. Had diffuse itching overnight - received Benadryl with helped (slightly fuzzy this am). Pain controlled, medications helping and feels she is tolerating pain medications. Worked with therapy this am. No nausea or ab pain. Passing flatus. Denies cough, congestion, or pain with breathing. On O2 at 2L - sats 100%. Check Hemogram and CMP. Decrease IVF to 75 cc/hr - stopped early evening. PT/OT initiated to help maximize functional status. Up in room with assistance - 50% weight bearing to left leg. Wean O2 as able, encourage use of IS and deep breathing. Consult with Dr Velasquez for Bone Health evaluation - Vit D levels ordered. Start routine MiraLAX and Senna Plus to help bowel motivation (hold with loose stools). PRN MOM and Dulcolax suppositories available. Restart home Synthroid. TSH normal. Continue with pain control - prn IV Dilaudid, oxycodone, tramadol, and acetaminophen. Continue SCD and Lovenox for DVT prevention. Mota cath removed. Recheck BMP in am to due to hypernatremia and IVF use. Recheck CBC in am to monitor for post op anemia. 09/27 POD #2 Feeling rough this am. Nauseated this am-no emesis, but not feeling like eating. Passing flatus, but no stool. Not having ab pain. Breathing feeling okay -no pain with breathing, cough or congestion but saturations in upper 80s on RA. No chest pain or palpitations. Urinating well without Mota cath. No f/c. Continue PT/OT initiated to help maximize functional status. Wean O2 as able, encourage use of IS and deep breathing. Monitor O2 sats. Start routine MiraLAX and Senna Plus to help bowel motivation (hold with loose stools). PRN MOM and Dulcolax suppositories available. Continue with pain control - prn IV Dilaudid, oxycodone, tramadol, and acetaminophen. Continue SCD and Lovenox for DVT prevention. Recheck BMP in. Recheck CBC in am to monitor for post op anemia. Looking at going home for rehabilitation - has excellent family support. Will have to see how she progresses with therapy. WALLY MADRIGAL MD Sep 27, 2016 10:32
[2016-09-27] MEDS: SENNA + DOCUSATE TAB PO SCH ×2 (10:43→21:15)
[2016-09-27] MEDS: CALCIUM 600mg + VIT D 400 TABLET PO SCH ×2 (10:43→21:15)
--- NOTE | 2016-09-27 11:58 | PDORTHOPN ---
Subjective Date DATE: 09/27/16 TIME: 11:56 Subjective Riya had some nausea this AM. She denied emesis. She does not feel bloated. She continues to be on 02 and desaturated when RA was attempted to 86. Mobility has been slow. Medical service gave laxatives this AM as well. Denies CP, cough or SOA. No other questions / concerns at this time. Objective Vital Signs Vital signs Vital Signs 09/27/16 09/27/16 09/27/16 09/27/16 00:00 00:21 00:22 04:00 Temp 99.7 99.2 Pulse 90 89 Resp 18 18 B/P 137/66 141/70 Pulse Ox 90 86 91 95 O2 Delivery Nasal Cannula Nasal Cannula Nasal Cannula Nasal Cannula O2 Flow Rate 1.00 1.00 1.50 1.00 09/27/16 09/27/16 09/27/16 08:10 09:25 11:14 Temp 96.8 Pulse 84 84 Resp 16 16 B/P 144/74 Pulse Ox 97 97 O2 Delivery Room Air Nasal Cannula O2 Flow Rate 1.00 Height (Feet): 5 Height (Inches): 9.00 Weight (Kilograms): 64.500 General General Appearance: Alert, Well Nourished, Well Developed, No Acute Distress Respiratory (Brief) Respiratory Brief: FOUND: non-labored Cardiovascular (Brief) Cardiac: FOUND: calf easily compressible, calf soft, nontender, pedal pulses intact Musculoskeletal (Brief) Hip: FOUND tender over trochanter Surgical Site Incision: FOUND: dressing intact, no drainage Integumentary (Brief) Integumentary Brief: FOUND dry, FOUND pink, FOUND warm Neurologic (Brief) Neurological Brief: FOUND: neuro intact Psychiatric (Brief) Psychiatric Brief: FOUND: alert, other (Appears tired from IV Benadryl.) Laboratory Laboratory Laboratory Tests 09/26/16 11:09 09/27/16 04:19 Laboratory Tests 09/26/16 11:09 09/27/16 04:19 Assessment & Plan Problems: (1) Impacted fracture of left hip Status: Acute Qualifiers: Encounter type: initial encounter Fracture type: closed Qualified Codes: S72.092A - Other fracture of head and neck of left femur, initial encounter for closed fracture Assessment & Plan: X Lovenox x 30 days. Mobilization and SCDs for added VTE protection. Keep 50% wt bearing on the left leg. Monitor labs. Change to Ultram due to itching. Hopefully avoid Benadryl. F/U in ortho clinic 10/18/16 @ 8:30AM. Hospital Course Summary Disclaimer The visit summary below is not to be considered part of the above Progress Note. Hospital Course 09/25/16 Admit - OP DAY Admitted for closed left subcapital fracture of left femoral neck. Underwent closed reduction with cannulated screw fixation of left subcapital femoral neck fracture. 09/26 POD #1 Doing okay this morning. Had diffuse itching overnight - received Benadryl with helped (slightly fuzzy this am). Pain controlled, medications helping and feels she is tolerating pain medications. Worked with therapy this am. No nausea or ab pain. Passing flatus. Denies cough, congestion, or pain with breathing. On O2 at 2L - sats 100%. Check Hemogram and CMP. Decrease IVF to 75 cc/hr - stopped early evening. PT/OT initiated to help maximize functional status. Up in room with assistance - 50% weight bearing to left leg. Wean O2 as able, encourage use of IS and deep breathing. Consult with Dr Velasquez for Bone Health evaluation - Vit D levels ordered. Start routine MiraLAX and Senna Plus to help bowel motivation (hold with loose stools). PRN MOM and Dulcolax suppositories available. Restart home Synthroid. TSH normal. Continue with pain control - prn IV Dilaudid, oxycodone, tramadol, and acetaminophen. Continue SCD and Lovenox for DVT prevention. Mota cath removed. Recheck BMP in am to due to hypernatremia and IVF use. Recheck CBC in am to monitor for post op anemia. 09/27 POD #2 Feeling rough this am. Nauseated this am-no emesis, but not feeling like eating. Passing flatus, but no stool. Not having ab pain. Breathing feeling okay -no pain with breathing, cough or congestion but saturations in upper 80s on RA. No chest pain or palpitations. Urinating well without Mota cath. No f/c. Continue PT/OT initiated to help maximize functional status. Wean O2 as able, encourage use of IS and deep breathing. Monitor O2 sats. Start routine MiraLAX and Senna Plus to help bowel motivation (hold with loose stools). PRN MOM and Dulcolax suppositories available. Continue with pain control - prn IV Dilaudid, oxycodone, tramadol, and acetaminophen. Continue SCD and Lovenox for DVT prevention. Recheck BMP in. Recheck CBC in am to monitor for post op anemia. Looking at going home for rehabilitation - has excellent family support. Will have to see how she progresses with therapy. GENOVEVA ZIMMERMAN Sep 27, 2016 11:58
--- NOTE | 2016-09-27 11:59 | NUR ---
TAL CM IN TO VISIT WITH PT. SHE IS ALERT AND ORIENTED. HER DAUGHTER IS PRESENT. PT PLANS TO DC HOME. SHE HAS 2 DAUGHTER, ONE IS A NURSE AND THE OTHER A PHYSICAL THERAPIST. THEY ARE GOING TO STAY WITH PATIENT. DAUGHTER REPORTS THAT PT HAS TOILET RISER AND SHOWER CHAIR. PT WILL NEED FWW. SHE IS GIVEN HIP KIT.
--- NOTE | 2016-09-27 13:40 | CONSPD ---
Consultation Info Date DATE: 09/27/16 TIME: 13:[address] Reeves Reason for Consultation: Bone health evaluation Impression/Recommendation Impression/Recommendation: (1) Impacted fracture of left hip Status: Acute Qualifiers: Encounter type: initial encounter Fracture type: closed Qualified Codes: S72.092A - Other fracture of head and neck of left femur, initial encounter for closed fracture Recommendation: X Lovenox x 30 days. Mobilization and SCDs for added VTE protection. Keep 50% wt bearing on the left leg. Monitor labs. Change to Ultram due to itching. Hopefully avoid Benadryl. F/U in ortho clinic 10/18/16 @ 8:30AM. Ortho HPI HPI Elements Location: FOUND hip (left) Injury: Yes (fall) Pain: FOUND throbbing, FOUND ache, FOUND pressure Onset: Sudden Radiating: No Duration: FOUND 6-12 hours Previous Surgery: No Previous Injury: No Aggrevated by: FOUND standing, FOUND squatting, FOUND prolonged sitting, FOUND all activity, FOUND getting out of a chair Associated Symptoms: FOUND weakness, FOUND sensation of giving way, NOT FOUND numbness Treatments Tried: FOUND rest, FOUND pain medications X-ray Findings: FOUND sub-capital fracture Recommendation: FOUND cannulated screw fixation HPI Has had past history of breast cancer treated by Dr. Ledbetter. Her daughter who is a nurse said that she has had prior DEXA scans that show osteoporosis but can't recall exactly how long ago that had been done. She's been on no prior treatment. Review of Systems Constitutional: DENIES: chills, dizziness, fever, weakness Cardiovascular DENIES: chest pain, dyspnea on exertion Vascular: DENIES: pedal edema Pulmonary Respiratory: DENIES: cough, dyspnea GI Upper Abdomen: DENIES: nausea, vomiting Lower Abdomen: DENIES: constipation, diarrhea Musculoskeletal General: joint pain, tenderness, weakness Integumentary Skin: DENIES: lesion Neurological General: DENIES: numbness, seizures, syncope Psychiatric Psychiatric: DENIES: anxiety, depression All Other Systems Reviewed Past Medical History Adult Problem List Updates breast cancer hypothyroid Surgical History Patient's Surgical History: left masectomy with lymph node removal BELINDA T and A jaw surgery for TMJ Current Medications Lactobacillus Combination No.4 (Probiotic) 1 Each Capsule, 3 CAP PO BID, ( Reported) Last Taken: Unknown Dose on 09/24/16 0800 Levothyroxine Sodium (Synthroid) 50 Mcg Tablet, 1 TAB PO ACB, (Reported) BEST IF TAKEN BEFORE BREAKFAST Last Taken: 50 MCG on 09/24/16 0700 Allergies Allergies: Coded Allergies: iodine (Verified Allergy, Unknown, 09/25/16) Family History Family History: non contributory Vaccines No UNKNOWN Social History Smoking Status: Never smoker Does patient use chewing tobac: No Second Hand Exposure: No Substance Use Type: does not use Alcohol Intake: none Marital Status: Sexuality: male partner Household Members: significant other Current Occupational Status: employed Advance Directives: No DPOA for Healthcare Only Physical Exam General General: well nourished, well developed, no acute distress Respiratory FOUND clear all quiñones, FOUND non-labored Cardiovascular FOUND regular rate, FOUND regular rhythm Capillary Refill: <2 sec Abdomen Abdominal: FOUND soft, NOT FOUND distended, NOT FOUND tender Musculoskeletal Musculoskeletal : Hip: FOUND tender over trochanter Integumentary FOUND dry, FOUND pink, FOUND warm Laboratory Laboratory Tests Test 09/27/16 04:19 White Blood Count 7.6T/MM3 Red Blood Count 3.79M/MM3 Hemoglobin 11.1GM/DL Hematocrit 35.8% Mean Corpuscular Volume 94.5UM3 Mean Corpuscular Hemoglobin 29.3UUG Mean Corpuscular Hemoglobin Concent 31.0GM/DL RDW Standard Deviation 44.0FL Platelet Count 184T/MM3 Mean Platelet Volume 10.4UM3 Immature Granulocyte % (Auto) 0.0% Neutrophils (%) (Auto) 72.1% Lymphocytes (%) (Auto) 14.5% Monocytes (%) (Auto) 9.7% Eosinophils (%) (Auto) 3.4% Basophils (%) (Auto) 0.3% Absolute Immature Granulocyte (auto 0.00T/MM3 Absolute Neutrophils (auto) 5.5T/MM3 Absolute Lymphocytes (auto) 1.1T/MM3 Absolute Monocytes (auto) 0.7T/MM3 Absolute Eosinophils (auto) 0.3T/MM3 Absolute Basophils (auto) 0.0T/MM3 Turbidity < 20 Sodium Level 136MEQ/L Potassium Level 3.9MEQ/L Chloride Level 98MEQ/L Carbon Dioxide Level 32MEQ/L Anion Gap 6MEQ/L Blood Urea Nitrogen 14.0MG/DL Creatinine 0.6MG/DL Glomerular Filtration Rate Calc 99 BUN/Creatinine Ratio 23RATIO Glucose Level 104MG/DL Calculated Osmolality 263MOSM/KG Calcium Level 8.6MG/DL Icterus Index < 2 Chemistry Specimen Hemolysis < 15 Case Report- BMD Demographics Age 71 Gender: Female If female: postmenopausal (amenorrhea for 12 mo. or more) Race White Height (Feet): 5 Height (Inches): 9.00 Weight (Kilograms): 64.500 Site of Current Fracture Lower Limb: hip (proximal femur) Fracture History History of fracture age 50 or: No Risk Factors History of Rheumatoid Arthriti: No Secondary Osteoporosis d/t con: No Medication Use Nutritional Supplements: calcium, vitamin d Treatment/Counseling Calcium 1200 mg/day (in divide: yes Vitamin D at least 800-1000 IU: yes Regular Weight Bearing and Mus: yes Fall Prevention: yes Smoking Cessation: yes Alcohol Comsumption (no more t: yes Pharmacologic Treatment Recomend Pharmacologic Therapy: No Therapy not recommended due to: bone health assessment ongoing Pharmacologic Therapy Initiate: No Reason Not Initiating Therapy: tx planned for near future Bone Mineral Density Testing Was BMD Testing Recommended?: Yes BMD Testing: planned/scheduled Written Communication Was pt provided with a letter: Yes Letter Provided to pts PCP?: Yes Discharge Status: routine discharge to home TETO ROMERO MD Sep 27, 2016 13:40
[2016-09-27] MEDS: POLYETHYL.GLYCOL 3350 PACKET 17gm PO SCH (15:20)
--- NOTE | 2016-09-27 20:14 | NUR ---
PROGRESS NOTE PT ALERT AND ORIENTED X3. VITAL SIGNS STABLE ON 0.5L O2 PER NC. THE PT IS UP X1 ASSIST, GAITBELT AND WALKER. PT INCISION TO THE LEFT HIP IS C/D/I. PT REFUSED TO WORK WITH PHYSICAL THERAPY IN THE AM DUE TO NAUSEA, ONE DOSE OF ZOFRAN 4MG IV WAS ADMINISTERED AND PT WAS ABLE TO EAT SMALL AMOUNT FOR BREAKFAST. PT HAS TOLERATED WELL THROUGHOUT THE SHIFT WITH PRN TRAMADOL FOR PAIN MANAGEMENT. PT HAS HAD ADEQUATE URINE OUTPUT THIS SHIFT AND NO BOWEL MOVEMENT. NO OTHER CONCERNS NOTED. PT IS RESTING IN BED, WITH LEFT LOWER EXTREMITY ELEVATED, SCDS IN PLACE, CALL LIGHT WITHIN REACH AND ICE PACK IN PLACE.
[2016-09-27] MEDS: ENOXAPARIN 40 MG/0.4 ML INJECTION SQ SCH (21:15)
[2016-09-27] MEDS: ACETAMINOPHEN 325 MG TABLET PO PRN (21:16)
[2016-09-28] VITALS (7 sets, daily range): BP systolic 121–146; BP diastolic 59–71; PULSE 76–91; RESP 16; TEMP 97–99.6; O2SAT 92–97
[2016-09-28] MEDS: ACETAMINOPHEN 325 MG TABLET PO PRN ×3 (06:46→20:51)
[2016-09-28] MEDS: LEVOTHYROXINE 50 MCG TABLET PO SCH (06:50)
[2016-09-28] MEDS: POLYETHYL.GLYCOL 3350 PACKET 17gm PO SCH (08:14)
[2016-09-28] MEDS: SENNA + DOCUSATE TAB PO SCH ×2 (08:14→20:42)
[2016-09-28] MEDS: CALCIUM 600mg + VIT D 400 TABLET PO SCH ×2 (08:14→20:42)
--- NOTE | 2016-09-28 08:16 | PDORTHOPN ---
Subjective Date DATE: 09/28/16 TIME: 08:11 Subjective Riya is up to a chair this AM with minimal assist and use of a walker. She continues to be on 02 with attempts to titrate down improving slowly. Her pain has been manageable with Tylenol. Oxycodone made her "loopy" and itchy. She has Ultram available as well. Sodium is 136 today. Objective Vital Signs Vital signs Vital Signs 09/27/16 09/27/16 09/27/16 09/28/16 20:28 22:00 23:56 03:50 Temp 96.6 97.2 97.5 Pulse 83 78 77 Resp 16 10 16 B/P 133/66 136/67 128/67 Pulse Ox 90 91 95 O2 Delivery Nasal Cannula Nasal Cannula Nasal Cannula Nasal Cannula O2 Flow Rate 1.00 1.00 0.50 1.00 Height (Feet): 5 Height (Inches): 9.00 Weight (Kilograms): 67.700 General General Appearance: Alert, Well Nourished, Well Developed, No Acute Distress Respiratory (Brief) Respiratory Brief: FOUND: non-labored Cardiovascular (Brief) Cardiac: FOUND: calf easily compressible, calf soft, nontender, pedal pulses intact Musculoskeletal (Brief) Hip: FOUND tender over trochanter Surgical Site Incision: FOUND: dressing intact, no drainage Integumentary (Brief) Integumentary Brief: FOUND dry, FOUND pink, FOUND warm Neurologic (Brief) Neurological Brief: FOUND: neuro intact Psychiatric (Brief) Psychiatric Brief: FOUND: alert, other (Appears tired from IV Benadryl.) Laboratory Laboratory Laboratory Tests 09/26/16 11:09 09/27/16 04:19 Laboratory Tests 09/26/16 11:09 09/27/16 04:19 Assessment & Plan Problems: (1) Impacted fracture of left hip Status: Acute Qualifiers: Encounter type: initial encounter Fracture type: closed Qualified Codes: S72.092A - Other fracture of head and neck of left femur, initial encounter for closed fracture Assessment & Plan: X Lovenox x 30 days. Mobilization and SCDs for added VTE protection. Keep 50% wt bearing on the left leg. Monitor labs. Change to Ultram due to itching. Oxycodone was discontinued. F/U in ortho clinic 10/18/16 @ 8:30AM. Hospital Course Summary Disclaimer The visit summary below is not to be considered part of the above Progress Note. Hospital Course 09/25/16 Admit - OP DAY Admitted for closed left subcapital fracture of left femoral neck. Underwent closed reduction with cannulated screw fixation of left subcapital femoral neck fracture. 09/26 POD #1 Doing okay this morning. Had diffuse itching overnight - received Benadryl with helped (slightly fuzzy this am). Pain controlled, medications helping and feels she is tolerating pain medications. Worked with therapy this am. No nausea or ab pain. Passing flatus. Denies cough, congestion, or pain with breathing. On O2 at 2L - sats 100%. Check Hemogram and CMP. Decrease IVF to 75 cc/hr - stopped early evening. PT/OT initiated to help maximize functional status. Up in room with assistance - 50% weight bearing to left leg. Wean O2 as able, encourage use of IS and deep breathing. Consult with Dr Velasquez for Bone Health evaluation - Vit D levels ordered. Start routine MiraLAX and Senna Plus to help bowel motivation (hold with loose stools). PRN MOM and Dulcolax suppositories available. Restart home Synthroid. TSH normal. Continue with pain control - prn IV Dilaudid, oxycodone, tramadol, and acetaminophen. Continue SCD and Lovenox for DVT prevention. Mota cath removed. Recheck BMP in am to due to hypernatremia and IVF use. Recheck CBC in am to monitor for post op anemia. 09/27 POD #2 Feeling rough this am. Nauseated this am-no emesis, but not feeling like eating. Passing flatus, but no stool. Not having ab pain. Breathing feeling okay -no pain with breathing, cough or congestion but saturations in upper 80s on RA. No chest pain or palpitations. Urinating well without Mota cath. No f/c. Continue PT/OT initiated to help maximize functional status. Wean O2 as able, encourage use of IS and deep breathing. Monitor O2 sats. Start routine MiraLAX and Senna Plus to help bowel motivation (hold with loose stools). PRN MOM and Dulcolax suppositories available. Continue with pain control - prn IV Dilaudid, oxycodone, tramadol, and acetaminophen. Continue SCD and Lovenox for DVT prevention. Recheck BMP in. Recheck CBC in am to monitor for post op anemia. Looking at going home for rehabilitation - has excellent family support. Will have to see how she progresses with therapy. GENOVEVA ZIMMERMAN Sep 28, 2016 08:15
[2016-09-28 09:58] LABS: BASOPHILS % (AUTO) 0.5 % (0-2); EOSINOPHILS # (AUTO) 0.2 T/MM3 (0-0.5); EOSINOPHILS % (AUTO) 3.6 % (0-4); HCT - HEMATOCRIT 35.8 % (36-46); HGB - HEMOGLOBIN 11.4 GM/DL (12-16); LYMPHOCYTES # (AUTO) 0.7 T/MM3 (1-4.8); LYMPHOCYTES % (AUTO) 11.5 % (23-45); MEAN CORPUSCULAR HGB 29.9 UUG (26-34); MEAN CORPUSCULAR HGB CONC(MCHC 31.8 GM/DL (31-37); MEAN PLATELET VOLUME 9.8 UM3 (9.4-12.4); MONOCYTES # (AUTO) 0.5 T/MM3 (0-0.8); MONOCYTES % (AUTO) 7.9 % (0-9.0); NEUTROPHILS #(AUTO)-ABSOLUTE 4.8 T/MM3 (1.8-7.7); NEUTROPHILS % (AUTO) 76.5 % (33-66); RED BLOOD COUNT 3.81 M/MM3 (4.00-5.20); WBC - WHITE BLOOD COUNT 6.3 T/MM3 (4.5-11.0)
--- NOTE | 2016-09-28 11:13 | NUR ---
TAL CM IN TO VISIT WITH PT AND DAUGHTER THAT IS PHYSICAL THERAPIST. PLAN IS FOR PT TO RETURN HOME TO BE CARED FOR BY DAUGHTERS. THEY CONFIRM THAT PT HAS BSC, TOILET RISER AND HIP KIT. THEY REQUEST FWW BE ORDERED FROM [facility]. THEY ARE MADE AWARE THAT DC IS POSSIBLE TOMORROW.
[2016-09-28] MEDS: TRAMADOL 50 MG TABLET PO PRN (12:43)
--- NOTE | 2016-09-28 14:47 | PNPDOC ---
Subjective Date DATE: 09/28/16 TIME: 14:34 Subjective F/U: Left subcapital femoral neck fracture Doing well today. Tolerating therapy, making slow gains. Notes pains with therapy and activities, but feels pain controlled well with current medications. No nausea. Appetite improving. Passing flatus, but not stool. Urinating well. Breathing well without SOA, cough or congestion - on 0.5L O2. Objective Vital Signs Vital signs Vital Signs Date Time Temp Pulse Resp B/P Pulse Ox O2 Delivery O2 Flow Rate FiO2 09/28/16 12:00 99.2 77 16 126/66 97 Nasal Cannula 0.50 Telemetry Rhythm: Sinus Rhythm Height (Feet): 5 Height (Inches): 9.00 Weight (Kilograms): 67.700 General General Appearance: Alert, Orientated x 3, Well Nourished, Well Developed, Cooperative, Looks Stated Age Eyes (Brief) Eyes: FOUND: EOMI, PERRL, NOT FOUND: scleral icterus ENMT (Brief) ENMT: FOUND: hearing intact, mucosa moist Neck (Brief) Neck: FOUND: midline, NOT FOUND: nuchal rigidity, spasm Respiratory (Brief) Respiratory: FOUND: clear all quiñones, equal bilaterally, NOT FOUND: rales, wheezes Cardiovascular (Brief) Cardiac: FOUND: regular rate, regular rhythm, NOT FOUND: pedal edema Abdomen (Brief) Abdominal: FOUND: BS normo active x4, soft, NOT FOUND: distended, tender Extremities (Brief) Extremity : Side: Bilateral Extremity: leg Extremity Finding: NOT FOUND: edema Musculoskeletal (Brief) Musculoskeletal: NOT FOUND: deformity, spasm Integumentary (Brief) Integumentary: FOUND: dry, warm Neurologic (Brief) Neurological: FOUND: cranial 2-12 intact, motor (intact ) Psychiatric (Brief) Psychiatric: FOUND: alert, attentive, normal affect, oriented Laboratory Laboratory Laboratory Tests 09/27/16 04:19 Laboratory Tests 09/27/16 04:19 09/28/16 09:43 Assessment & Plan Problems: (1) Closed subcapital fracture of neck of left femur Status: Acute Qualifiers: Encounter type: initial encounter Qualified Codes: S72.012A - Unspecified intracapsular fracture of left femur, initial encounter for closed fracture Assessment & Plan: 09/25: Closed reduction with cannulated screw fixation of left subcapital femoral neck fracture - Dr Reeves. (2) Fall Status: Acute Qualifiers: Encounter type: initial encounter Qualified Codes: W19.XXXA - Unspecified fall, initial encounter Assessment & Plan: Loss of footing - tripped (3) Hypernatremia Status: Resolved Assessment & Plan: POA (4) Hypothyroidism Status: Chronic Qualifiers: Hypothyroidism type: acquired Qualified Codes: E03.9 - Hypothyroidism, unspecified (5) Osteoporosis Status: Chronic Qualifiers: Osteoporosis type: age-related Presence of current pathological fracture: without current pathological fracture Qualified Codes: M81.0 - Age-related osteoporosis without current pathological fracture (6) Constipation Status: Acute Qualifiers: Constipation type: drug induced constipation Qualified Codes: K59.03 - Drug induced constipation (7) Blood loss anemia Status: Acute Assessment & Plan: HGB decreased from 13.5 to 11.7 post op. (8) History of breast cancer Status: Chronic Assessment Continue PT/OT initiated to help maximize functional status. Continue to wean O2-Encouraged continue deep breathing activities and IS. Dulcolax suppository to help stools as still slow despite Miralax and Senna Plus. Continue with pain control with prn tramadol and acetaminophen. Has not needed Dilaudid since the . Continue SCD and Lovenox for DVT prevention. Recheck Hemogram in am to monitor post op anemia. Possible discharge to home tomorrow if continues to do well. Case discussed with nursing and CM. Time spent with pt care 35 minutes. DVT Prophylaxis: SCD'S, Lovenox Code Status Full Code Hospital Course Summary Disclaimer The hospital course summary below is not to be considered part of the above Progress Note. Hospital Course Summary 09/25/16 Admit - OP DAY Admitted for closed left subcapital fracture of left femoral neck. Underwent closed reduction with cannulated screw fixation of left subcapital femoral neck fracture. 09/26 POD #1 Doing okay this morning. Had diffuse itching overnight - received Benadryl with helped (slightly fuzzy this am). Pain controlled, medications helping and feels she is tolerating pain medications. Worked with therapy this am. No nausea or ab pain. Passing flatus. Denies cough, congestion, or pain with breathing. On O2 at 2L - sats 100%. Check Hemogram and CMP. Decrease IVF to 75 cc/hr - stopped early evening. PT/OT initiated to help maximize functional status. Up in room with assistance - 50% weight bearing to left leg. Wean O2 as able, encourage use of IS and deep breathing. Consult with Dr Velasquez for Bone Health evaluation - Vit D levels ordered. Start routine MiraLAX and Senna Plus to help bowel motivation (hold with loose stools). PRN MOM and Dulcolax suppositories available. Restart home Synthroid. TSH normal. Continue with pain control - prn IV Dilaudid, oxycodone, tramadol, and acetaminophen. Continue SCD and Lovenox for DVT prevention. Mota cath removed. Recheck BMP in am to due to hypernatremia and IVF use. Recheck CBC in am to monitor for post op anemia. 4/ POD #2 Feeling rough this am. Nauseated this am-no emesis, but not feeling like eating. Passing flatus, but no stool. Not having ab pain. Breathing feeling okay -no pain with breathing, cough or congestion but saturations in upper 80s on RA. No chest pain or palpitations. Urinating well without Mota cath. No f/c. Continue PT/OT initiated to help maximize functional status. Wean O2 as able, encourage use of IS and deep breathing. Monitor O2 sats. Continue MiraLAX and Senna Plus to help bowel motivation. PRN MOM and Dulcolax suppositories available. Continue with pain control - prn IV Dilaudid, oxycodone, tramadol, and acetaminophen. Continue SCD and Lovenox for DVT prevention. Recheck CBC in am to monitor post op anemia. Looking at going home for rehabilitation - has excellent family support. Will have to see how she progresses with therapy. 4 POD #3 Doing well today. Tolerating therapy, making slow gains. Notes pains with therapy and activities, but feels pain controlled well with current medications. No nausea. Appetite improving. Passing flatus, but not stool. Urinating well. Breathing well without SOA, cough or congestion - on 0.5L O2. Continue PT/OT initiated to help maximize functional status. Continue to wean O2-Encouraged continue deep breathing activities and IS. Dulcolax suppository to help stools as still slow despite Miralax and Senna Plus. Continue with pain control with prn tramadol and acetaminophen. Has not needed Dilaudid since the . Continue SCD and Lovenox for DVT prevention. Recheck Hemogram in am to monitor post op anemia. Possible discharge to home tomorrow if continues to do well. WALLY MADRIGAL MD Sep 28, 2016 14:38
--- NOTE | 2016-09-28 16:15 | NUR ---
Pt. Assessment. Pt ate well and drinks liquids well. Did receive scheduled meds for bowel elimination and received Dulcolax suppository one rectally at 1443. Flds encouraged and has active bowel sounds. No bowel movement as yet.
[2016-09-28] MEDS: ENOXAPARIN 40 MG/0.4 ML INJECTION SQ SCH (20:42)
[2016-09-29] VITALS: BP 143/73; PULSE 80; RESP 20; TEMP 97.3; O2SAT 98
[2016-09-29 04:29] VITALS: BP 145/67; PULSE 78; RESP 20; TEMP 97.7; O2SAT 95
--- NOTE | 2016-09-29 04:29 | NUR ---
Chart Check 24 hour chart check completed
--- NOTE | 2016-09-29 04:30 | NUR ---
STATUS PATIENT ALERT AND ORIENTEDX3. PATIENT C/O PAIN AT LT HIP.PRN TYLENOL X1WAS ADMINISTRATED. PATIENT IS RESTING QUIETLY DURING NIGHT. PATIENT AMBULATED TO BATHROOM WITH WALKER AND ONE STANDBY ASSIST. DENIES CHEST PAIN,SOA,OR N/V. CALL LIGHT WITHIN REACH.CONTINUE TO MONITOR.
[2016-09-29 05:40] LABS: HGB - HEMOGLOBIN 12.1 GM/DL (12-16); MEAN CORPUSCULAR HGB 29.9 UUG (26-34); MEAN CORPUSCULAR HGB CONC(MCHC 31.8 GM/DL (31-37); MEAN CORPUSCULAR VOLUME 93.8 UM3 (80-100); MEAN PLATELET VOLUME 10.1 UM3 (9.4-12.4); RED BLOOD COUNT 4.05 M/MM3 (4.00-5.20)
[2016-09-29] MEDS: LEVOTHYROXINE 50 MCG TABLET PO SCH (06:19)
--- NOTE | 2016-09-29 08:35 | PDORTHOPN ---
Subjective Date DATE: 09/29/16 TIME: 08:33 Subjective Riya states she is feeling well today. She presently has no oxygen on. Her mobility is improving. She feels up to going home. She denies chest pain or shortness of breath. Objective Vital Signs Vital signs Vital Signs 09/28/16 09/29/16 09/29/16 22:59 00:00 04:29 Temp 98.8 97.3 97.7 Pulse 79 80 78 Resp 16 20 20 B/P 146/71 143/73 145/67 Pulse Ox 96 98 95 O2 Delivery Room Air Nasal Cannula Nasal Cannula O2 Flow Rate 1.00 1.00 Height (Feet): 5 Height (Inches): 9.00 Weight (Kilograms): 67.700 General General Appearance: Alert, Well Nourished, Well Developed, No Acute Distress Respiratory (Brief) Respiratory Brief: FOUND: non-labored Cardiovascular (Brief) Cardiac: FOUND: calf easily compressible, calf soft, nontender, pedal pulses intact Musculoskeletal (Brief) Hip: FOUND tender over trochanter Surgical Site Incision: FOUND: dressing intact, no drainage Integumentary (Brief) Integumentary Brief: FOUND dry, FOUND pink, FOUND warm Neurologic (Brief) Neurological Brief: FOUND: neuro intact Psychiatric (Brief) Psychiatric Brief: FOUND: alert, other (Appears tired from IV Benadryl.) Laboratory Laboratory Laboratory Tests 09/28/16 09:43 09/29/16 04:30 Assessment & Plan Problems: (1) Impacted fracture of left hip Status: Acute Qualifiers: Encounter type: initial encounter Fracture type: closed Qualified Codes: S72.092A - Other fracture of head and neck of left femur, initial encounter for closed fracture Assessment & Plan: X Lovenox x 30 days. Mobilization and SCDs for added VTE protection. Keep 50% wt bearing on the left leg. Monitor labs. F/U in ortho clinic 10/18/16 @ 8:30AM. Hospital Course Summary Disclaimer The visit summary below is not to be considered part of the above Progress Note. Hospital Course 09/25/16 Admit - OP DAY Admitted for closed left subcapital fracture of left femoral neck. Underwent closed reduction with cannulated screw fixation of left subcapital femoral neck fracture. 09/26 POD #1 Doing okay this morning. Had diffuse itching overnight - received Benadryl with helped (slightly fuzzy this am). Pain controlled, medications helping and feels she is tolerating pain medications. Worked with therapy this am. No nausea or ab pain. Passing flatus. Denies cough, congestion, or pain with breathing. On O2 at 2L - sats 100%. Check Hemogram and CMP. Decrease IVF to 75 cc/hr - stopped early evening. PT/OT initiated to help maximize functional status. Up in room with assistance - 50% weight bearing to left leg. Wean O2 as able, encourage use of IS and deep breathing. Consult with Dr Velasquez for Bone Health evaluation - Vit D levels ordered. Start routine MiraLAX and Senna Plus to help bowel motivation (hold with loose stools). PRN MOM and Dulcolax suppositories available. Restart home Synthroid. TSH normal. Continue with pain control - prn IV Dilaudid, oxycodone, tramadol, and acetaminophen. Continue SCD and Lovenox for DVT prevention. Mota cath removed. Recheck BMP in am to due to hypernatremia and IVF use. Recheck CBC in am to monitor for post op anemia. 4/ POD #2 Feeling rough this am. Nauseated this am-no emesis, but not feeling like eating. Passing flatus, but no stool. Not having ab pain. Breathing feeling okay -no pain with breathing, cough or congestion but saturations in upper 80s on RA. No chest pain or palpitations. Urinating well without Mota cath. No f/c. Continue PT/OT initiated to help maximize functional status. Wean O2 as able, encourage use of IS and deep breathing. Monitor O2 sats. Continue MiraLAX and Senna Plus to help bowel motivation. PRN MOM and Dulcolax suppositories available. Continue with pain control - prn IV Dilaudid, oxycodone, tramadol, and acetaminophen. Continue SCD and Lovenox for DVT prevention. Recheck CBC in am to monitor post op anemia. Looking at going home for rehabilitation - has excellent family support. Will have to see how she progresses with therapy. 09/28 POD #3 Doing well today. Tolerating therapy, making slow gains. Notes pains with therapy and activities, but feels pain controlled well with current medications. No nausea. Appetite improving. Passing flatus, but not stool. Urinating well. Breathing well without SOA, cough or congestion - on 0.5L O2. Continue PT/OT initiated to help maximize functional status. Continue to wean O2-Encouraged continue deep breathing activities and IS. Dulcolax suppository to help stools as still slow despite Miralax and Senna Plus. Continue with pain control with prn tramadol and acetaminophen. Has not needed Dilaudid since the . Continue SCD and Lovenox for DVT prevention. Recheck Hemogram in am to monitor post op anemia. Possible discharge to home tomorrow if continues to do well. GENOVEVA ZIMMERMAN Sep 29, 2016 08:35
[2016-09-29 09:04] VITALS: BP 131/63; PULSE 86; RESP 16; RESP 20; TEMP 98; O2SAT 95
[2016-09-29] MEDS: ACETAMINOPHEN 325 MG TABLET PO PRN (09:09)
[2016-09-29] MEDS: POLYETHYL.GLYCOL 3350 PACKET 17gm PO SCH (09:10)
[2016-09-29] MEDS: CALCIUM 600mg + VIT D 400 TABLET PO SCH (09:10)
[2016-09-29] MEDS: SENNA + DOCUSATE TAB PO SCH (09:10)
--- NOTE | 2016-09-29 09:20 | NUR ---
TAL PARADA STOPPED IN AND LET PATIENT KNOW THAT WALKER WILL BE DELIVERED BY 12:00 P.M. TODAY.
--- NOTE | 2016-09-29 12:28 | PNPDOC ---
Subjective Date DATE: 09/29/16 TIME: 12:19 Subjective F/U: Left subcapital femoral neck fracture Doing well today. Ambulated in halls well with walker assistance. Pain controlled; tolerating pain medications. No nausea. Appetite improving. Bowels moving. Breathing well without SOA or congestion. No chest pain. Urinating well. No f/c. Hemoglobin stable. Objective Vital Signs Vital signs Vital Signs Date Time Temp Pulse Resp B/P Pulse Ox O2 Delivery O2 Flow Rate FiO2 09/29/16 09:04 86 20 09/29/16 09:04 98.0 131/63 95 Room Air 09/29/16 04:29 1.00 Telemetry Rhythm: Sinus Rhythm Height (Feet): 5 Height (Inches): 9.00 Weight (Kilograms): 67.700 General General Appearance: Alert, Orientated x 3, Well Nourished, Well Developed, Cooperative, No Acute Distress, Looks Stated Age Eyes (Brief) Eyes: FOUND: EOMI, PERRL, NOT FOUND: scleral icterus ENMT (Brief) ENMT: FOUND: hearing intact, mucosa moist Neck (Brief) Neck: FOUND: midline, NOT FOUND: nuchal rigidity, spasm Respiratory (Brief) Respiratory: FOUND: clear all quiñones, equal bilaterally, NOT FOUND: rales, wheezes Cardiovascular (Brief) Cardiac: FOUND: regular rate, regular rhythm, NOT FOUND: pedal edema Abdomen (Brief) Abdominal: FOUND: BS normo active x4, soft, NOT FOUND: distended, tender Extremities (Brief) Extremity : Side: Bilateral Extremity: leg Extremity Finding: NOT FOUND: edema Musculoskeletal (Brief) Musculoskeletal: NOT FOUND: deformity, spasm Integumentary (Brief) Integumentary: FOUND: dry, warm Neurologic (Brief) Neurological: FOUND: cranial 2-12 intact, motor (intact ) Psychiatric (Brief) Psychiatric: FOUND: alert, attentive, normal affect, oriented Laboratory Laboratory Laboratory Tests 09/28/16 09:43 09/29/16 04:30 Assessment & Plan Problems: (1) Closed subcapital fracture of neck of left femur Status: Acute Qualifiers: Encounter type: initial encounter Qualified Codes: S72.012A - Unspecified intracapsular fracture of left femur, initial encounter for closed fracture Assessment & Plan: 09/25: Closed reduction with cannulated screw fixation of left subcapital femoral neck fracture - Dr Reeves. (2) Fall Status: Acute Qualifiers: Encounter type: initial encounter Qualified Codes: W19.XXXA - Unspecified fall, initial encounter Assessment & Plan: Loss of footing - tripped (3) Hypernatremia Status: Resolved Assessment & Plan: POA (4) Hypothyroidism Status: Chronic Qualifiers: Hypothyroidism type: acquired Qualified Codes: E03.9 - Hypothyroidism, unspecified (5) Osteoporosis Status: Chronic Qualifiers: Osteoporosis type: age-related Presence of current pathological fracture: without current pathological fracture Qualified Codes: M81.0 - Age-related osteoporosis without current pathological fracture (6) Constipation Status: Resolved Qualifiers: Constipation type: drug induced constipation Qualified Codes: K59.03 - Drug induced constipation (7) Blood loss anemia Status: Acute Assessment & Plan: HGB decreased from 13.5 to 11.7 post op. (8) History of breast cancer Status: Chronic Assessment Will d/c to home for continued PT/OT - medically stable. Condition good. Continue Lovenox for DVT prevention. Encourage continued IS use. Tramadol and Tylenol as needed for pain. Continue to work on bowel function - likely as activities increase bowels will move better. F/U with Dr Abby Carolina in 1 week for medical evaluation. F/U with ortho clinic on 10/18 at 0830. F/U with Dr Velasquez in 2 month for bone health evaluation. Seen orders for details. Case discussed with CM and family. Time spent with pt care and discharge greater than 35 minutes. DVT Prophylaxis: SCD'S, Lovenox Code Status Full Code Hospital Course Summary Disclaimer The hospital course summary below is not to be considered part of the above Progress Note. Hospital Course Summary 09/25/16 Admit - OP DAY Admitted for closed left subcapital fracture of left femoral neck. Underwent closed reduction with cannulated screw fixation of left subcapital femoral neck fracture. 09/26 POD #1 Doing okay this morning. Had diffuse itching overnight - received Benadryl with helped (slightly fuzzy this am). Pain controlled, medications helping and feels she is tolerating pain medications. Worked with therapy this am. No nausea or ab pain. Passing flatus. Denies cough, congestion, or pain with breathing. On O2 at 2L - sats 100%. Check Hemogram and CMP. Decrease IVF to 75 cc/hr - stopped early evening. PT/OT initiated to help maximize functional status. Up in room with assistance - 50% weight bearing to left leg. Wean O2 as able, encourage use of IS and deep breathing. Consult with Dr Velasquez for Bone Health evaluation - Vit D levels ordered. Start routine MiraLAX and Senna Plus to help bowel motivation (hold with loose stools). PRN MOM and Dulcolax suppositories available. Restart home Synthroid. TSH normal. Continue with pain control - prn IV Dilaudid, oxycodone, tramadol, and acetaminophen. Continue SCD and Lovenox for DVT prevention. Mota cath removed. Recheck BMP in am to due to hypernatremia and IVF use. Recheck CBC in am to monitor for post op anemia. 4 POD #2 Feeling rough this am. Nauseated this am-no emesis, but not feeling like eating. Passing flatus, but no stool. Not having ab pain. Breathing feeling okay -no pain with breathing, cough or congestion but saturations in upper 80s on RA. No chest pain or palpitations. Urinating well without Mota cath. No f/c. Continue PT/OT initiated to help maximize functional status. Wean O2 as able, encourage use of IS and deep breathing. Monitor O2 sats. Continue MiraLAX and Senna Plus to help bowel motivation. PRN MOM and Dulcolax suppositories available. Continue with pain control - prn IV Dilaudid, oxycodone, tramadol, and acetaminophen. Continue SCD and Lovenox for DVT prevention. Recheck CBC in am to monitor post op anemia. Looking at going home for rehabilitation - has excellent family support. Will have to see how she progresses with therapy. 09/28 POD #3 Doing well today. Tolerating therapy, making slow gains. Notes pains with therapy and activities, but feels pain controlled well with current medications. No nausea. Appetite improving. Passing flatus, but not stool. Urinating well. Breathing well without SOA, cough or congestion - on 0.5L O2. Continue PT/OT initiated to help maximize functional status. Continue to wean O2-Encouraged continue deep breathing activities and IS. Dulcolax suppository to help stools as still slow despite Miralax and Senna Plus. Continue with pain control with prn tramadol and acetaminophen. Has not needed Dilaudid since the 9th. Continue SCD and Lovenox for DVT prevention. Recheck Hemogram in am to monitor post op anemia. Possible discharge to home tomorrow if continues to do well. 09/29 POD #4 Doing well today. Ambulated in halls well with walker assistance. Pain controlled; tolerating pain medications. No nausea. Appetite improving. Bowels moving. Breathing well without SOA or congestion. No chest pain. Urinating well. No f/c. Hemoglobin stable. Will d/c to home for continued PT/OT - medically stable. Condition good. Continue Lovenox for DVT prevention. Encourage continued IS use. Tramadol and Tylenol as needed for pain. Continue to work on bowel function - likely as activities increase bowels will move better. F/U with Dr Abby Carolina in 1 week for medical evaluation. F/U with ortho clinic on 10/18 at 0830. F/U with Dr Velasquez in 2 months for bone health evaluation. Seen orders for details. WALLY MADRIGAL MD Sep 29, 2016 12:24
[2016-09-29] MEDS ORDERED: ACET-2321 PO (12:30)
[2016-09-29] MEDS ORDERED: POLY17PO18 PO (12:30)
[2016-09-29] MEDS ORDERED: MAGN400O4 PO (12:30)
[2016-09-29] MEDS ORDERED: CALC-747 PO (12:30)
[2016-09-29] MEDS ORDERED: TRAM50TA53 PO (12:30)
[2016-09-29] MEDS ORDERED: BISA10SU8 RECTALLY (12:30)
[2016-09-29] MEDS ORDERED: SENN-152 PO (12:30)
[2016-09-29] MEDS ORDERED: ENOX40DI SQ (12:32)
[2016-09-29] MEDS: TRAMADOL 50 MG TABLET PO PRN (12:32)
--- NOTE | 2016-09-29 14:40 | NUR ---
CM CM IN TO VISIT WITH PT, SPOUSE AND DAUGHTER. THEY ARE GIVEN [employer] COUPON FOR LOVENOX. THEY STATE THAT THEY CAN AFFORD COST.
[2016-09-29 14:57] VITALS: BP 125/69; PULSE 76; RESP 16; O2SAT 96
--- NOTE | 2016-09-29 15:00 | NUR ---
DISCHARGE PT DISCHARGED TO HOME IN GOOD CONDITION. DISCHARGE TEACHING REVIEWED AND PT/FAMILY'S QUESTIONS ANSWERED. PT VERBALIZED UNDERSTANDING. PRESCRIPTIONS FOR LOVENOX AND TRAMADOL GIVEN TO PT. PACKET GIVEN TO PT. PT WHEELED OUT ACCOMPANIED BY NURSING STAFF, DAUGHTER, AND .
--- NOTE | 2016-10-01 14:45 | DSF ---
ADMISSION DIAGNOSIS Left femoral neck fracture. DISCHARGE DIAGNOSIS Closed left minimally displaced subcapital femoral neck fracture (Garden I valgus impacted). ASSOCIATED CONDITIONS AND COMPLICATIONS 1. Osteoporosis. 2. Hypothyroidism. 3. Hypernatremia (present on admission)--resolved. 4. Constipation. 5. History of breast cancer. 6. Blood loss anemia--no transfusion required. CONSULTS Dr. Reeves--Orthopedic Surgery. PT, OT. PROCEDURES 09/25/2016: Closed reduction with cannulated screw fixation of left subcapital femoral neck fracture--Dr. Reeves. CLINICAL RESUME Riya Russo is a 71-year-old female who presents to [facility] secondary to left hip pain. She tripped over a toy tractor while taking recycling out. She landed on her left hip and denies head injury or loss of consciousness. She was able to get up independently and attempted to hop back to the house, but she was unable to bear weight on her left leg. Left hip pain inhibited her ability to return to her home. assisted her return. Daughter (a nurse) arrived shortly thereafter and patient was subsequently taken to [facility] Room for evaluation. There x-rays did demonstrate an impacted left femoral neck fracture. She has had no nausea or vomiting. Pain is being controlled with Dilaudid. She was placed in inpatient admission status at [facility] for definitive surgical intervention. For complete details of the H&P refer to that document. LABORATORY White blood count is 10.0, with hemoglobin 13.9, hematocrit 41.3, MCV 92.6, and platelets 248,000. Serum sodium is 145, potassium 4.0, chloride 104, CO2 29, BUN 22, with creatinine 0.7, GFR 83, and blood glucose 123. Transaminases are unremarkable. 25 OH vitamin D total is 41, with 25-hydroxy vitamin D2 less than 7. TSH is 1.72. UA is remarkable only for low specific gravity at less than or equal to 1.005. HOSPITAL COURSE Patient was placed in inpatient admission status at [facility] under the hospitalist service. She was made n.p.o. at time of presentation for orthopedic intervention on day of admit. Dilaudid was initiated for pain control. Dr. Reeves was consulted for orthopedic evaluation. He did interview and examine the patient. Radiographs were reviewed. He discussed with the patient risks versus benefit versus alternative therapy to above-noted procedure. Informed consent was obtained. She was taken to operating room on admit day where she underwent closed reduction with cannulated screw fixation of her left subcapital femoral neck fracture. She did tolerate the procedure well. By postop day #1 she was doing fair. She had significant itching overnight and did need to receive Benadryl (which made her somewhat fuzzy that morning). Adjustments to pain medications were made by Ortho. IV fluids were able to be decreased to 75 mL an hour. PT/OT were consulted to help increase functional status. Orthopedic Surgery recommended 50% weightbearing to the left leg. We worked on weaning oxygen. Dr. Velasquez was consulted for bone health evaluation and vitamin D levels were ordered. We did initiate routine MiraLAX and Senna Plus to help with bowel motivation, with p.r.n. Milk of Magnesia and Dulcolax suppositories available as needed. Her own Synthroid was restarted--her TSH was normal. SCDs were continued and Lovenox had been started for DVT prophylaxis. Mota catheter was removed. Lab was monitored. Her hospital course was one of gradual improvement. Ultimately pain medications were changed to Tylenol and tramadol, which the patient found to be quite beneficial. She had no side effects with these medications. Oxygen was able to be weaned off postop. We encouraged her on ISUs to help respiratory status. Patient participated well with therapy and did make interval improvement of her strength and abilities. Bowel function did return following use of Dulcolax suppository. Hemoglobin was monitored, and while we did see slight decrease, no transfusion was required during the hospitalization. Indeed, hemoglobin had improved to 12.1 by time of discharge. Her hyponatremia resolved. Renal function remained stable. Blood pressure did well postop. Case Management was helpful in finding discharge arrangements. Overall with the patient making such significant improvement, and the fact that she has very good help at home with her daughters, the patient was wanting to give trial of discharge to home with the help of outpatient physical and occupational therapy. We felt this was agreeable. At time of discharge, she is eating, drinking, and breathing well. Vitals were stable, and she is afebrile. Bowels were moving. She is maintaining saturations in the 95% to 96% on room air. She was tolerating therapy. Lab was stable. She was able to be discharged to home in stable condition. NARRATIVE DISCLAIMER: Above narrative is a brief summary of the patient's hospitalization. For complete details of the hospital course, refer to the medical record. DISCHARGE CONDITION Stable/good. DIET Regular. ACTIVITIES 50% weightbearing on left leg, walker for assistance. MEDICATIONS Tylenol 325 mg one to two every 5 hours p.r.n. pain. Dulcolax [address] daily p.r.n. constipation. Calcium with vitamin D 600/400 mg b.i.d. Lovenox 40 mg subcutaneously q.h.s. for 27 days. Milk of Magnesia 30 mL daily p.r.n. constipation MiraLAX 17 grams daily p.r.n. constipation. Senna Plus one p.o. b.i.d. p.r.n. constipation. Tramadol 50 mg one to two every 6 hours p.r.n. pain. Probiotic three capsules b.i.d. Synthroid 0.05 mg a.c. breakfast. FOLLOWUP Patient will follow with Dr. Carolina in one week for medical reevaluation. Patient will follow with orthopedic clinic on 10/18/2016 at 0830 hours. Patient will follow with Dr. Velasquez in three months for bone health evaluation. Patient will work with PT/OT in the outpatient setting to maximize strength and functional status. INSTRUCTIONS TO PATIENT Patient was instructed on her diagnosis and treatments provided. She received informed consent prior to surgical intervention. We encouraged her to be adherent with medications. I discussed various modalities which could help maximize bowel function. I encouraged her on incentive spirometer use in the outpatient setting. I encouraged her to participate well with therapy. Discussed potential side effects of pain medications. She will watch for temperature greater than 100.4. She will watch for new or worsening leg or hip pain. Additionally she will watch for swelling of her lower extremities. Should other problems or need occur, she can be in contact with her regular provider. If symptoms become quite dire, she can present to emergency room for acute evaluation. She voiced understanding of the above. Time spent with discharge greater than 35 minutes. MTDD
--- NOTE | 2016-10-04 11:02 | NUR ---
ATTEMPTED FOLLOW UP CALL #1. UNABLE TO LEAVE MESSAGE FOR PT.
--- NOTE | 2016-10-06 14:01 | NUR ---
ATTEMPTED POST HOSPITAL FOLLOW UP PHONE CALL #2, NO ANSWER, DOES NOT HAVE VOICE MESSAGE.
== END 2016-09-29 14:58 | disposition home or self-care (01) | DRG 481 ==
LOC: ED 22:08 → EDHOLD 09-25 02:04 → SRG 09-25 02:50
PROVIDERS: ADMIT Emergency Medicine; ATTEND Internal Medicine
PROC: 0QS734Z Reposition Left Upper Femur with Internal Fixation Device, Percutaneous Approach (ICD-10-PCS; principal; 2016-09-25 09:47)
DX: S72.012A Unspecified intracapsular fracture of left femur, initial encounter for closed fracture (principal); E87.0 Hyperosmolality and hypernatremia; D62 Acute posthemorrhagic anemia; W01.0XXA Fall on same level from slipping, tripping and stumbling without subsequent striking against object, initial encounter; Y93.01 Activity, walking, marching and hiking; Y92.015 Private garage of single-family (private) house as the place of occurrence of the external cause; Y99.8 Other external cause status; E03.9 Hypothyroidism, unspecified; M81.0 Age-related osteoporosis without current pathological fracture; K59.00 Constipation, unspecified; Z85.3 Personal history of malignant neoplasm of breast
CPT/HCPCS: 36415; 80048; 80053; 81003; 82306; 83735; 84100; 84443; 85025; 85027; 93005; 94762; 96374